=== PATIENT | male | born 1940 | race African-American/Black ===

== ENCOUNTER 2016-12-06 12:41 | Inpatient (IN) ==
[2016-12-06] MEDS ORDERED: MORPHINE 2 MG/1 ML SYRINGE IV PRN (12:45)
[2016-12-06] MEDS ORDERED: ONDANSETRON 4 MG/2 ML VIAL IV PRN (12:45)
[2016-12-06] MEDS ORDERED: NALOXONE 0.4 MG/ML VIAL IV PRN (12:45)
[2016-12-06] MEDS ORDERED: NITROGLYCERIN SL 0.4 MG TABLET SL PRN (12:49)
--- NOTE | 2016-12-06 12:57 | Family Practice History&Phys ---
Assessment and Plan (1) Atypical chest pain Status: Acute Assessment and plan: 12/06/2016: Cardiac isoenzyme series has been ordered. Will ask cardiology to see him as well. (2) Left maxillary sinusitis Status: Acute Assessment and plan: 12/06/2016: We will asked Dr. Alvaro Cherry to see him, IV Zosyn has been ordered. (3) Acute bronchitis Status: Acute Assessment and plan: 12/06/2016: We will begin bronchodilator therapy, IV antibiotics and repeat chest x-ray today. History of Present Illness Chief complaint: Chest pain History of present illness: Mr. Helton is a 76 year old male Patient is 76-year-old black male presented office on day of admission with persisting left-sided chest pain. Patient has had a productive cough for the last week or so. He is not having any fever or chills. He states the pain is intermittent and sharp in character and not associated with nausea, vomiting, diaphoresis or shortness of breath. Patient denies any radiation of this discomfort in the office was noted to have some chest wall tenderness. He was also having some URI symptoms and x-rays of the sinuses revealed him to have almost total opacification of his left maxillary sinus. Patient was being treated with outpatient antibiotics and handheld nebulizer but his symptoms persisted. It was felt best to admit him, check isoenzymes, ask ENT and cardiology to see him as well. A CT of his chest will also be ordered. Home Medications Medication Instructions Recorded Confirmed Type Aspirin [Ecotrin] 81 mg PO QAM 09/30/14 09/09/16 History Nitroglycerin [Nitroglycerin 0.4 1 patch TRANSDERM PRN PRN 09/30/14 09/09/16 History mg/Hr Patch] Amoxicillin/Clav Tab [Augmentin 500 mg PO TID #30 tablet 09/09/16 Rx Tab] Carvedilol 3.125 mg PO BID 09/09/16 09/09/16 History Cyanocobalamin (Vitamin B-12) 1,000 mcg PO QAM 09/09/16 09/09/16 History [Vitamin B-12] Dorzolamide/Timolol Oph Soln 1 drop BOTH EYES BID 09/09/16 09/09/16 History [Cosopt] Levothyroxine Tab [Synthroid Tab] 88 mcg PO DAILY@0700 09/09/16 09/09/16 History Meclizine [Antivert] 12.5 mg PO QID #40 tablet 09/09/16 Rx Vit C/Vit E AC/Lut/Copper/Zinc 1 each PO QAM 09/09/16 09/09/16 History [Preservision Lutein Softgel] predniSONE TAB [PredniSONE] 20 mg PO DAILY #15 tablet 09/09/16 Rx prednisoLONE acetate [PrednisoLONE 1 drop BOTH EYES TID 09/09/16 09/09/16 History Acetate 1% Oph Susp] Allergies Allergy/AdvReac Type Severity Reaction Status Date / Time No Known Allergies Allergy Unverified 09/30/14 07:33 - Constitutional Constitutional: Present: fatigue, weakness. Absent: chills, fever(s) - EENT Eyes: Absent: blurry vision, loss of vision Ears: Absent: decreased hearing, ear pain Nose, mouth and throat: Present: nasal congestion, sinus pressure, sore throat. Absent: hoarseness - Cardiovascular Cardiovascular: Present: chest pain at rest, dyspnea on exertion, palpitations. Absent: claudication, diaphoresis, dyspnea, orthopnea, PND - Respiratory Respiratory: Present: cough, dyspnea, dyspnea on exertion, wheezing, pain on inspiration - Gastrointestinal Gastrointestinal: Absent: abdominal pain, diarrhea, dyspepsia, dysphagia, hematemesis, hematochezia, melena, nausea, vomiting - Genitourinary Genitourinary: Absent: dysuria, urinary frequency - Musculoskeletal Musculoskeletal: Absent: arthralgias, back pain, joint swelling - Neurological Neurological: Absent: confusion, focal weakness, numbness, paresthesias - Psychiatric Psychiatric: Absent: anxiety, confusion, depression - Endocrine Endocrine: Present: fatigue. Absent: polydipsia, polyphagia - Hematologic/Lymphatic Hematologic/Lymphatic: Absent: easy bleeding, easy bruising Medical,Surgical,& Family Hx - Medical History Cardio: History of: Hypertension HEENT: History of: Glaucoma Endocrine: History of: Thyroid Disorder Respiratory: History of: Bronchitis - Surgical History Surgical History: noncontributory - Family History Family History: Reports;: Family Diabetes, Family Heart Disease, Family Hypertension - Social History Smoking Status: Never smoker Exam - Constitutional Exam: General: Objective patient is a well-developed black male in no acute distress. Patient is able give a good history. He is obviously a bit anxious about his present predicament. HEENT: Pupils equal and reactive to light. Patent nares and airway Neck: No meningismus, adenopathy, thyromegaly. There are no auscultated carotid bruits. Cardiovascular: Regular rhythm. No murmurs or gallops Chest: Clear to auscultation without rales rhonchi wheezes. Patient started to have some left anterior chest wall tenderness Abdomen: Soft nontender to palpation No masses, rebound, guarding or tenderness. Neuro: Cranial nerves intact and DTRs and strength symmetric in all extremities. Dermatologic: No evidence of abnormal lesions or masses. Musculoskeletal: There is no joint swelling or tenderness or deformity. Extremities: There is no calf swelling or tenderness. Results - Diagnostic Findings Procedure: X-ray: report reviewed by me (Sinus x-rays in office revealed almost complete opacification of left maxillary sinus.)
[2016-12-06] MEDS ORDERED: SODIUM CHLORIDE 0.45% 1,000 ML IV SCH (13:00)
[2016-12-06] MEDS: ALBUTEROL 2.5 MG/3 ML NEB RESP TX SCH ×2 (15:53→19:20)
[2016-12-06 16:21] LABS: Basophils % 0.4 % (0.0-0.8); Eosinophils # 0.1 10*3/uL (0.0-0.87); Eosinophils % 1.3 % (0.00-10.9); Hemoglobin 15.1 GM/DL (14.0-18.0); Immature Granulocytes % 0.4 %; Immature Granulocytes Absolute 0.02 #; Lymphocytes # 1.7 10*3/uL (1.4-4.0); Lymphocytes % 30.5 % (21.2-54.2); Mean Corpuscular HGB Conc 33.6 GM/DL (32-36); Mean Corpuscular Hemoglobin 30 PG (27-34); Mean Corpuscular Volume 88.8 FL (87-102); Mean Platelet Volume 12.7 FL (9.6-12.0); Monocytes # 0.4 10*3/uL (0.11-0.8); Monocytes % 7.8 % (1.7-12.7); Neutrophils # 3.3 10*3/uL (1.4-7.4); Neutrophils % 59.6 % (38.7-73.9); Platelet Count 141 T/CUMM (130-400); Red Blood Count 5.07 MC/CUMM (3.8-5.5); Red Cell Distribution Width 14.4 % (9.3-17.3); White Blood Count 5.5 T/CUMM (4-12)
[2016-12-06] MEDS: PIPERACILLIN/TAZOBACTAM 3,375 MG in SODIUM CHLORIDE 0.9% 100 ML IV SCH (16:41)
[2016-12-06 16:47] LABS: Bilirubin,Total 0.6 MG/DL (0.2-1.0); Calcium 9.1 MG/DL (8.5-10.1); Magnesium 2.3 MG/DL (1.8-2.4); Osmolality,Calculated 281.3 MOS/KG (273-304); Potassium 3.5 MMOL/L (3.5-5.1); Total Protein 7.6 G/DL (6.4-8.3)
--- NOTE | 2016-12-06 16:56 | Cardiology Consult Note ---
Assessment and Plan - Time spent with patient Time spent with patient: Greater than 30 minutes (chart review, exam and documentation.) (1) Aortic valve sclerosis Status: Chronic Current Visit: Yes (2) Aortic insufficiency Status: Chronic Current Visit: Yes Qualifiers: Cardiac valve disease etiology: nonrheumatic Qualified Code(s): I35.1 - Nonrheumatic aortic (valve) insufficiency (3) Hypertension Status: Chronic Current Visit: Yes (4) Atypical chest pain Status: Chronic Assessment and plan: Weight serial biomarkers and ECGs. The patient had a low risk stress test approximately 1 year ago. He may need further evaluation. His symptoms do not have appeared to change since that time. This is been a chronic problem. Current Visit: Yes History of Present Illness - Data of Consult Patient: known to practice within the last 3 years Consult date: 12/06/16 Requesting Physician: Leo Cuellar Primary care physician: Leo Cuellar ([facility]) - Consult Narrative Reason for consult: Atypical chest pain History of present illness: Mr. Helton is a 76 year old male with a strong family history of coronary artery disease who was evaluated in the in November 2015 began walking nuclear stress test and transthoracic echo. He had a low risk stress test at that time his echo showed ejection fraction of 60% with mildly dilated left atrium mild aortic sclerosis and trivial aortic insufficiency with grade 1 diastolic dysfunction right ventricular systolic pressure at that time was estimated to be 40 mmHg plus right atrial pressure. He states he has chest pain all the time now he presents to Dr. Cuellar for evaluation when headache is his primary complaint but also a secondary complaint of chest pain. It comes and goes without provocation reason and leaves just as mysteriously as it came on. It is not related to exertion and is not related to eating is not related to position. He is admitted to the hospital and I saw on 2 E. for evaluation has been initiated. His CBC is back EKG is pending as are his other labs. He is not having pain at this time. He is accompanied by his brother Ismael. The patient lives alone. This pain has been a chronic discomfort. He describes a sharp waxing and waning. CC: Leo Cuellar MD - Home Medications and Allergies Home Medications: Home Medications Medication Instructions Recorded Confirmed Type Aspirin [Ecotrin] 81 mg PO QAM 09/30/14 12/06/16 History Cyanocobalamin (Vitamin B-12) 1,000 mcg PO QAM 09/09/16 12/06/16 History [Vitamin B-12] Levothyroxine Tab [Synthroid Tab] 88 mcg PO DAILY@0700 09/09/16 12/06/16 History prednisoLONE acetate [PrednisoLONE 1 drop BOTH EYES TID 09/09/16 12/06/16 History Acetate 1% Oph Susp] Albuterol Sulfate [Proair HFA] 2 puff INH Q4H PRN 12/06/16 12/06/16 History Amoxicillin Cap/Tab 875 mg PO Q12HR 12/06/16 12/06/16 History Dorzolamide HCl/Timolol Maleat 1 drop RIGHT EYE BID 12/06/16 12/06/16 History [Dorzolamide/Timolol Oph Soln] Lutein 20 mg PO DAILY 12/06/16 12/06/16 History Triamterene/Hydrochlorothiazid 1 each PO DAILY 12/06/16 12/06/16 History [Triamterene-Hctz 37.5-25 mg Tb] Vit C/Vit E AC/Lut/Copper/Zinc 1 each PO DAILY 12/06/16 12/06/16 History [Preservision Lutein Softgel] Allergies/Adverse Reactions: Allergies Allergy/AdvReac Type Severity Reaction Status Date / Time No Known Allergies Allergy Unverified 09/30/14 07:33 - Constitutional Constitutional: Absent: anorexia, chills, fever(s), frequent falls, weight loss - EENT Eyes: Absent: blurry vision, diplopia Ears: Absent: decreased hearing, ear discharge Nose, mouth and throat: Present: dysphagia, nasal congestion, sinus pressure - Cardiovascular Cardiovascular: Present: chest pain at rest. Absent: chest pain with activity, dyspnea, dyspnea on exertion, edema, lightheadedness, orthopnea, palpitations - Respiratory Respiratory: Absent: dyspnea, dyspnea on exertion - Gastrointestinal Gastrointestinal: Absent: abdominal pain, constipation, cramping, dyspepsia, heartburn - Genitourinary Genitourinary: Absent: difficulty urinating, hematuria - Musculoskeletal Musculoskeletal: Present: arthralgias. Absent: joint swelling, muscle cramps - Neurological Neurological: Absent: abnormal gait, disequilibrium - Psychiatric Psychiatric: Absent: anxiety, depression - Endocrine Endocrine: Absent: cold intolerance, heat intolerance - Hematologic/Lymphatic Hematologic/Lymphatic: Absent: easy bleeding, easy bruising Medical,Surgical,& Family Hx - Medical History Cardio: History of: Hypertension, Valvular Heart Disease (Trivial AI and aortic sclerosis by last TTE. RVSP estimated at 40 mmHg.) HEENT: History of: Glaucoma Endocrine: History of: Thyroid Disorder Respiratory: History of: Bronchitis - Surgical History Abdominal Surgeries: Surgical HX of: Appendectomy (1962) - Family History Family History: Reports;: Family Diabetes, Family Heart Disease, Family Hypertension - Social History Smoking Status: Never smoker Frequency of Alcohol Use: None Type of Drug Use: None Marital Status: Single Lives With:: Alone Functional capacity: independent ambulation Physical Examination Vital Signs Temp Pulse Resp BP Pulse Ox 97.7 F 71 20 147/71 94 L 12/06/16 15:35 12/06/16 15:35 12/06/16 15:35 12/06/16 15:35 12/06/16 15:35 General: Present: Appears Well Neck: Present: Supple Neck, Midline Trachea Cardiac: Present: Reg Rate and Rhythm, S1/S2, S4, Systolic Murmur (2/6 murmur of aortic sclerosis) Lungs: Present: Normal Exam Neuro: Present: Cranial Nerve 2-12 Intact Abdomen: Present: Soft, Active Bowel Sounds Skin: Present: Clear, Rash Gait: Present: Normal Gait Extremities: Present: Normal Gait, No Clubbing. Absent: Edema Result/EKG - Labs CBC & BMP: 12/06/16 16:16 12/06/16 16:16 Labs: Laboratory Results - last 24 hr 12/06/16 12/06/16 12/06/16 16:16 16:16 16:16 WBC 5.5 RBC 5.07 Hgb 15.1 Hct 45.0 MCV 88.8 MCH 30 MCHC 33.6 RDW 14.4 Plt Count 141 MPV 12.7 H Neut % (Auto) 59.6 Lymph % (Auto) 30.5 [place] % (Auto) 7.8 Eos % (Auto) 1.3 Baso % (Auto) 0.4 Neut # (Auto) 3.3 Lymph # (Auto) 1.7 [place] # (Auto) 0.4 Eos # (Auto) 0.1 Baso # (Auto) 0.0 Immature Gran % 0.4 Nucleated RBC % 0.0 Immature Gran # 0.02 Nucleated RBCs # 0.00 Immature Plt Fraction 0.0 Sodium 141 Potassium 3.5 Chloride 107 Carbon Dioxide 30 Anion Gap 7.5 BUN 13 Creatinine 1.10 GFR Calculation 100 BUN/Creatinine Ratio 11.00 Glucose 108 H Calculated Osmolality 281.3 Calcium 9.1 Magnesium 2.3 Total Bilirubin 0.60 AST 13 ALT 22 Alkaline Phosphatase 71 C-Reactive Protein B-Natriuretic Peptide 12 Total Protein 7.6 Albumin 4.0 Globulin 3.6 H Albumin/Globulin Ratio 1.1 12/06/16 16:16 WBC RBC Hgb Hct MCV MCH MCHC RDW Plt Count MPV Neut % (Auto) Lymph % (Auto) [place] % (Auto) Eos % (Auto) Baso % (Auto) Neut # (Auto) Lymph # (Auto) [place] # (Auto) Eos # (Auto) Baso # (Auto) Immature Gran % Nucleated RBC % Immature Gran # Nucleated RBCs # Immature Plt Fraction Sodium Potassium Chloride Carbon Dioxide Anion Gap BUN Creatinine GFR Calculation BUN/Creatinine Ratio Glucose Calculated Osmolality Calcium Magnesium Total Bilirubin AST ALT Alkaline Phosphatase C-Reactive Protein < 0.29 B-Natriuretic Peptide Total Protein Albumin Globulin Albumin/Globulin Ratio
[2016-12-06 16:59] LABS: Troponin I Only < 0.015 NG/ML (0.00-0.045)
[2016-12-06 17:07] LABS: Apearance,Urine CLEAR (Clear); Bilirubin,Urine Negative (Negative); Blood, Urine Negative (Negative); Glucose,Urine (UA) Negative (Negative); Ketones,Urine Negative (Negative); Mucus,Urine Occasional /LPF (Occasional); Nitrite,Urine Negative (Negative); Protein,Urine Negative; RBC,Urine 1 /HPF (0-4); Squamous Epithelial Cell,Urine Occasional /HPF (0-10); Urine Color Yellow (Yellow); Urine Specific Gravity 1.026 (1.001-1.035); WBC,Urine 2 /HPF (0-6)
--- NOTE | 2016-12-06 17:21 | XRay Report ---
2 view chest. Indication: Shortness of breath. Comparison: September 09, 2016. The heart is enlarged. There is uncoiling of the thoracic aorta which often indicates chronic hypertension. There is a calcified lymph node in the right hilum. No consolidation, pneumothorax, or pleural effusion. Osseous structures are unremarkable. Impression: No acute abnormality. PROCEDURE INTERPRETED AT [facility] DEPARTMENT OF RADIOLOGY Final Report Signed by: Dr. Janet Vincent
--- NOTE | 2016-12-06 17:43 | CT Report ---
CT of the chest with intravenous contrast, PE protocol. Indication: Chest pain and shortness of breath. 80 cc Omni 350. Axial images were obtained with sagittal and coronal 2-D reconstructions and 3-D reconstructions. The thyroid gland is normal in size. There is no supraclavicular or axillary lymphadenopathy. The heart is normal in size. The thoracic aorta is of normal caliber. There is no evidence of pulmonary thromboembolism. There is no pleural or pericardial effusion. The lung campos demonstrate minimal centrilobular emphysematous change and bronchial wall thickening. Osseous structures are unremarkable. Impression: Chronic lung changes. No evidence of pulmonary thromboembolism. The CT exam was performed using one or more of the following dose reduction techniques: Automated exposure control, adjustment of the mA and/or kV according to patient size, or use of iterative reconstruction technique. PROCEDURE INTERPRETED AT [facility] DEPARTMENT OF RADIOLOGY Final Report Signed by: Dr. Janet Vincent
[2016-12-06] MEDS: ENOXAPARIN 40 MG/0.4 ML SYRINGE SUBCUT SCH (18:10)
[2016-12-06 20:23] LABS: Troponin I Only < 0.015 NG/ML (0.00-0.045)
[2016-12-06] MEDS ORDERED: NITROGLYCERIN 2% OINT 1 INCH/GM PACK TOP SCH (21:00)
[2016-12-06] MEDS: DOCUSATE SODIUM 100 MG CAPSULE PO SCH (21:21)
[2016-12-06] MEDS: DORZOLAMIDE/TIMOLOL OPH SOLN 10 ML BOTTLE BOTH EYES SCH (21:21)
[2016-12-06 22:57] LABS: Troponin I Only < 0.015 NG/ML (0.00-0.045)
[2016-12-07] MEDS: ALBUTEROL 2.5 MG/3 ML NEB RESP TX SCH ×4 (00:11→19:55)
[2016-12-07] MEDS: PIPERACILLIN/TAZOBACTAM 3,375 MG in SODIUM CHLORIDE 0.9% 100 ML IV SCH ×3 (01:21→16:40)
[2016-12-07] MEDS: ACETAMINOPHEN 325 MG TABLET PO PRN ×2 (01:52→18:09)
[2016-12-07 06:10] LABS: Risk Ratio 3.69; VLDL CHOLESTEROL 14.6 MG/DL
[2016-12-07] MEDS: LEVOTHYROXINE 88 MCG TABLET PO SCH (06:12)
--- NOTE | 2016-12-07 07:18 | Family Practice Progress Note ---
Family Practice - PN: Subj Interval history: Patient states that he had a good night but still feels terrible. His workup thus far only reveals left maxillary sinusitis. Told patient had normal CBC and a normal CRP. A CT of the chest reveal no evidence of pulmonary embolus or infiltrates. His laboratory studies basically unremarkable. I have asked ENT to see him today and will continue his present antibiotics. I am going ask physical therapy to come and ambulate him today. Exam (Progress Note) - Constitutional Vitals: Period Temp Pulse Resp BP Sys/Guajardo Pulse Ox Last 24 Hr 97.2 F-98.2 F 59-71 18-20 129-147/71-78 94-98 Exam: Objective well-developed gentleman in no acute distress. He is able to give good history. He has no confusion or disorientation. Cardiovascular: The heart rate is regular without murmurs or gallops. Respiratory: Lungs clear to auscultation bilaterally. He was noted to have left anterior chest wall tenderness. Abdomen: Abdomen soft and nontender to palpation. Extremities: There is no calf swelling or tenderness. Results - Labs CBC & BMP: 12/06/16 16:16 12/06/16 16:16 Lab Results: I have reviewed the past 24 hour labs - Diagnostic Findings Procedure: Chest x-ray: report reviewed by me (No acute abnormality seen.), CT - chest: report reviewed by me (No evidence of pulmonary emboli or infiltrates.) Assessment and Plan (1) Atypical chest pain Status: Chronic Assessment and plan: 12/06/2016: Cardiac isoenzyme series has been ordered. Will ask cardiology to see him as well. 12/07/2016: Patient's cardiac isoenzymes are all negative. I reassured him he certainly did not have any evidence of heart attack. Current Visit: Yes (2) Left maxillary sinusitis Status: Acute Assessment and plan: 12/06/2016: We will asked Dr. Alvaro Cherry to see him, IV Zosyn has been ordered. 12/07/2016: Patient will be seen by ENT. Continue present IV antibiotics. Current Visit: Yes (3) Acute bronchitis Status: Acute Assessment and plan: 12/06/2016: We will begin bronchodilator therapy, IV antibiotics and repeat chest x-ray today. 12/07/2016: Patient states his cough has improved somewhat. Current Visit: Yes
--- NOTE | 2016-12-07 08:14 | EKG Report ---
Stationary ECG Study [facility] Test Date: 12/06/2016 6:19:47 PM Pat Name: JUAN HICKS Department: Room: 245 Gender: M Athletics Director: DOUGIE : 1940 Requested by: Christiana Valdovinos Order Number: [id number] Reading MD: CHRISTIANA VALDOVINOS Intervals [place] Rate: 68 P: 51 OR: 194 QRS: -3 QRSD: 104 T: 36 QT: 397 QTc: 414 Interpretive Statements SINUS RHYTHM Electronically Signed On 12-09-16 18:33:35 CDT by CHRISTIANA VALDOVINOS [email or web address]
--- NOTE | 2016-12-07 08:15 | EKG Report ---
Stationary ECG Study [facility] Test Date: 12/07/2016 7:19:36 AM Pat Name: JUAN HICKS Department: Room: 245 Gender: M Certified Medication Aide: SHELDON : 1940 Requested by: Zachary Martin Order Number: [id number] Reading MD: ESSENCE GIBSON Intervals [place] Rate: 60 P: 46 MT: 166 QRS: 1 QRSD: 107 T: -17 QT: 411 QTc: 411 Interpretive Statements SINUS RHYTHM at 60 bpm POSSIBLE RIGHT VENTRICULAR CONDUCTION DELAY VOLTAGE CRITERIA FOR [facility] MT WP SUGGESTS INFERIOR MYOCARDIAL INFARCTION, OF INDETERMINATE AGE WITH POSTERIOR EXTENSION Electronically Signed On 12-10-16 17:22:57 CDT by ESSENCE GIBSON [email or web address]
[2016-12-07] MEDS: CYANOCOBALAMIN 500 MCG TABLET PO SCH (08:55)
[2016-12-07] MEDS: ASPIRIN EC 81 MG TABLET PO SCH (08:55)
[2016-12-07] MEDS: TRIAMTERENE/HCTZ 37.5-25 MG TABLET PO SCH (08:55)
[2016-12-07] MEDS: DOCUSATE SODIUM 100 MG CAPSULE PO SCH ×2 (08:55→21:23)
[2016-12-07] MEDS: PANTOPRAZOLE 40 MG TABLET PO SCH (08:55)
[2016-12-07] MEDS ORDERED: ASPIRIN EC 325 MG TABLET PO SCH (09:00)
[2016-12-07] MEDS: DORZOLAMIDE/TIMOLOL OPH SOLN 10 ML BOTTLE BOTH EYES SCH ×2 (10:28→21:22)
--- NOTE | 2016-12-07 11:02 | Consultation ---
<Fior Joy - Last Filed: 12/07/16 12:01> Assessment and Plan (1) Left maxillary sinusitis Status: Acute Assessment and plan: with chronic sinusitis. Patient in currently on antibiotic therapy. We will get a CT scan of the sinuses for further evaluation. After this is obtained, we will discuss outpatient management options. Thank you for your consultation. Current Visit: Yes (2) Frontal headache Status: Acute Assessment and plan: Patient had onset of frontal headache during his interview which is likely related to his chronic sinusitis. Trigger point pressure applied to supra occipital nerve with some relief of his frontal headache. Encouraged patient to perform this technique the onset of his frontal headaches. Current Visit: Yes (3) Trigeminal neuralgia Status: Acute Assessment and plan: See frontal headaches. Current Visit: Yes (4) Nasal polyps Status: Chronic Assessment and plan: same as left maxillary sinusitis and add Flonase. Current Visit: Yes History of Present Illness - Data of Consult Patient: new to practice Consult date: 12/07/16 - Consult Narrative Reason for consult: Left Maxillary Sinusitis History of present illness: Mr. Helton is a 76 year old male who is currently being treated for left maxillary sinusitis. Prior to admission, he was on outpatient antibiotics and was noted to have a left maxillary sinusitis on x-ray. He is currently on IV antibiotics and also has bronchitis. He complains of cough with sputum which is a chronic issue. He also has chronic frontal headaches with one occurring during his interview. CC: Leo Cuellar MD - Home Medications and Allergies Home Medications: Home Medications Medication Instructions Recorded Confirmed Type Aspirin [Ecotrin] 81 mg PO QAM 09/30/14 12/06/16 History Cyanocobalamin (Vitamin B-12) 1,000 mcg PO QAM 09/09/16 12/06/16 History [Vitamin B-12] Levothyroxine Tab [Synthroid Tab] 88 mcg PO DAILY@0700 09/09/16 12/06/16 History prednisoLONE acetate [PrednisoLONE 1 drop BOTH EYES TID 09/09/16 12/06/16 History Acetate 1% Oph Susp] Albuterol Sulfate [Proair HFA] 2 puff INH Q4H PRN 12/06/16 12/06/16 History Amoxicillin Cap/Tab 875 mg PO Q12HR 12/06/16 12/06/16 History Dorzolamide HCl/Timolol Maleat 1 drop RIGHT EYE BID 12/06/16 12/06/16 History [Dorzolamide/Timolol Oph Soln] Lutein 20 mg PO DAILY 12/06/16 12/06/16 History Triamterene/Hydrochlorothiazid 1 each PO DAILY 12/06/16 12/06/16 History [Triamterene-Hctz 37.5-25 mg Tb] Vit C/Vit E AC/Lut/Copper/Zinc 1 each PO DAILY 12/06/16 12/06/16 History [Preservision Lutein Softgel] Allergies/Adverse Reactions: Allergies Allergy/AdvReac Type Severity Reaction Status Date / Time No Known Allergies Allergy Unverified 09/30/14 07:33 12 point system: reviewed and no additional remarkable complaints except as stated - EENT Nose, mouth and throat: Present: as per HPI - Respiratory Respiratory: Present: as per HPI Medical,Surgical,& Family Hx - Medical History Cardio: History of: Hypertension, Valvular Heart Disease (Trivial AI and aortic sclerosis by last TTE. RVSP estimated at 40 mmHg.) HEENT: History of: Glaucoma Endocrine: History of: Thyroid Disorder Respiratory: History of: Bronchitis - Surgical History Abdominal Surgeries: Surgical HX of: Appendectomy (1962) - Family History Family History: Reports;: Family Diabetes, Family Heart Disease, Family Hypertension - Social History Smoking Status: Never smoker Frequency of Alcohol Use: None Type of Drug Use: None Exam - Constitutional Vitals: Period Temp Pulse Resp BP Sys/Guajardo Pulse Ox Last 24 Hr 97.2 F-98.2 F 59-71 18-20 129-147/71-78 94-99 General appearance: normal weight, no acute distress - Head Head exam: Present: normal inspection, normocephalic, other (Supraorbital nerve tenderness) - Eye Eye exam: Present: EOMI - ENT ENT exam: Present: normal external ear exam, other (Anterior rhinoscopy performed and noted left polypoid degeneration) - Expanded ENT Exam Teeth exam: Present: other (Poor dentition) Throat exam: Present: normal inspection - Neck Neck exam: Present: normal inspection - Respiratory Respiratory exam: Present: other (Normal effort and movement bilaterally) - Neurological Exam Neurological exam: Present: alert, oriented X3 - Psychiatric Psychiatric exam: Present: normal affect, normal mood - Skin Skin exam: Present: normal color, warm Results - Labs CBC & BMP: 12/06/16 16:16 12/06/16 16:16 <Alvaro Cherry - Last Filed: 12/07/16 12:34> Assessment and Plan - Time spent with patient Time spent with patient: Less than 30 minutes History of Present Illness - Consult Narrative History of present illness: Mr. Helton is a 76 year old male CC: Leo Cuellar MD Exam - Constitutional Vitals: Period Temp Pulse Resp BP Sys/Guajardo Pulse Ox Last 24 Hr 97.2 F-98.2 F 59-71 18-20 129-157/71-96 94-99 - Neurological Exam Neurological exam: Present: CN II-XII intact (Cranial nerve V branch 1 hyperesthesia bilateral treated with a direct inhibition technique tolerated well abated headache) Results - Labs CBC & BMP: 12/06/16 16:16 12/06/16 16:16 Lab Results: I have reviewed the past 24 hour labs
--- NOTE | 2016-12-07 12:20 | CT Report ---
CT sinus wo con Indication: Left maxillary sinusitis, chronic sinusitis Comparison: None Technique: Multiple axial tomographic images of the sinuses were obtained without the use of intravenous contrast. Coronal reformatted images provided. Findings: There is near complete opacification of the left maxillary sinus with changes of chronic osteitis. There is mild hyperdensity centrally which may reflect inspissated secretions or fungal infection. There is minimal mucosal thickening of the ethmoid air cells. Remaining paranasal sinuses and mastoid air cells are clear. Visualized osseous and surrounding soft tissue structures demonstrate no acute abnormality. IMPRESSION: There is near complete opacification of the left maxillary sinus with changes of chronic osteitis. There is mild hyperdensity centrally which may reflect inspissated secretions or fungal infection. There is minimal mucosal thickening of the ethmoid air cells. The CT exam was performed using one or more of the following dose reduction techniques: Automated exposure control, adjustment of the mA and/or kV according to patient size, or use of iterative reconstruction technique. PROCEDURE INTERPRETED AT [facility] [place] DEPARTMENT OF RADIOLOGY Final Report Signed by: Dr John Woodard
--- NOTE | 2016-12-07 13:44 | Cardiology Progress Note ---
Assessment and Plan (1) Aortic valve sclerosis Status: Chronic Current Visit: Yes (2) Aortic insufficiency Status: Chronic Current Visit: Yes Qualifiers: Cardiac valve disease etiology: nonrheumatic Qualified Code(s): I35.1 - Nonrheumatic aortic (valve) insufficiency (3) Hypertension Status: Chronic Current Visit: Yes (4) Atypical chest pain Status: Chronic Assessment and plan: Outpatient work up if persists. follow up with Dr. Augustin. Current Visit: Yes Cardiology - PN: Subj Interval history: Mr. Helton continues to have chest pain he says it starts out in his hand and goes to his chest. He had a low risk nuclear stress test and echo in November of last year. His cardiac biomarkers are negative his EKG is workable. 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 I do not feel that inpatient evaluation is warranted at this time. His CT scan of the sinuses was noted. I do not think any further cardiovascular workup needs to be performed at this time in the hospital. I have nothing further to add and will sign off please call if needed Exam (Progress Note) - Constitutional Vitals: Period Temp Pulse Resp BP Sys/Guajardo Pulse Ox Last 24 Hr 97.2 F-98.2 F 59-71 18-20 129-157/71-96 94-99 General appearance: normal weight - Eye Eye exam: Present: EOMI Pupils: Present: KARTHIK - Respiratory Respiratory exam: Present: clear to auscultation bilaterally - Cardiovascular Cardiovascular exam: Present: regular rate and rhythm - GI/Abdominal GI/Abdominal exam: Present: normal bowel sounds - Neurological Exam Neurological exam: Present: alert, oriented X3 - Psychiatric Psychiatric exam: Present: normal affect, anxious - Skin Skin exam: Present: normal color, warm, dry Result/EKG - Labs CBC & BMP: 12/06/16 16:16 12/06/16 16:16 Labs: Laboratory Results - last 24 hr 12/06/16 12/06/16 12/06/16 16:16 16:16 16:16 WBC 5.5 RBC 5.07 Hgb 15.1 Hct 45.0 MCV 88.8 MCH 30 MCHC 33.6 RDW 14.4 Plt Count 141 MPV 12.7 H Neut % (Auto) 59.6 Lymph % (Auto) 30.5 Pepin % (Auto) 7.8 Eos % (Auto) 1.3 Baso % (Auto) 0.4 Neut # (Auto) 3.3 Lymph # (Auto) 1.7 Pepin # (Auto) 0.4 Eos # (Auto) 0.1 Baso # (Auto) 0.0 Immature Gran % 0.4 Nucleated RBC % 0.0 Immature Gran # 0.02 Nucleated RBCs # 0.00 Immature Plt Fraction 0.0 ESR Westergren Sodium 141 Potassium 3.5 Chloride 107 Carbon Dioxide 30 Anion Gap 7.5 BUN 13 Creatinine 1.10 GFR Calculation 100 BUN/Creatinine Ratio 11.00 Glucose 108 H POC Glucose Calculated Osmolality 281.3 Calcium 9.1 Magnesium 2.3 Total Bilirubin 0.60 AST 13 ALT 22 Alkaline Phosphatase 71 Total Creatine Kinase CK-MB (CK-2) Troponin I C-Reactive Protein B-Natriuretic Peptide 12 Total Protein 7.6 Albumin 4.0 Globulin 3.6 H Albumin/Globulin Ratio 1.1 Triglycerides Cholesterol LDL Cholesterol VLDL Cholesterol HDL Cholesterol Heart Disease Risk Ratio Urine Color Urine Appearance Urine pH Ur Specific Acworth Urine Protein Urine Glucose (UA) Urine Ketones Urine Blood Urine Nitrate Urine Bilirubin Urine Urobilinogen Urine Leukocytes Urine RBC Urine WBC Ur Squamous Epith Cells Urine Mucus Ur Culture Indicated? 12/06/16 12/06/16 12/06/16 16:16 16:16 16:16 WBC RBC Hgb Hct MCV MCH MCHC RDW Plt Count MPV Neut % (Auto) Lymph % (Auto) Pepin % (Auto) Eos % (Auto) Baso % (Auto) Neut # (Auto) Lymph # (Auto) Pepin # (Auto) Eos # (Auto) Baso # (Auto) Immature Gran % Nucleated RBC % Immature Gran # Nucleated RBCs # Immature Plt Fraction ESR Westergren 21 H Sodium Potassium Chloride Carbon Dioxide Anion Gap BUN Creatinine GFR Calculation BUN/Creatinine Ratio Glucose POC Glucose Calculated Osmolality Calcium Magnesium Total Bilirubin AST ALT Alkaline Phosphatase Total Creatine Kinase 94 CK-MB (CK-2) < 1.0 Troponin I < 0.015 C-Reactive Protein < 0.29 B-Natriuretic Peptide Total Protein Albumin Globulin Albumin/Globulin Ratio Triglycerides Cholesterol LDL Cholesterol VLDL Cholesterol HDL Cholesterol Heart Disease Risk Ratio Urine Color Urine Appearance Urine pH Ur Specific Acworth Urine Protein Urine Glucose (UA) Urine Ketones Urine Blood Urine Nitrate Urine Bilirubin Urine Urobilinogen Urine Leukocytes Urine RBC Urine WBC Ur Squamous Epith Cells Urine Mucus Ur Culture Indicated? 12/06/16 12/06/16 12/06/16 16:38 19:50 21:39 WBC RBC Hgb Hct MCV MCH MCHC RDW Plt Count MPV Neut % (Auto) Lymph % (Auto) Pepin % (Auto) Eos % (Auto) Baso % (Auto) Neut # (Auto) Lymph # (Auto) Pepin # (Auto) Eos # (Auto) Baso # (Auto) Immature Gran % Nucleated RBC % Immature Gran # Nucleated RBCs # Immature Plt Fraction ESR Westergren Sodium Potassium Chloride Carbon Dioxide Anion Gap BUN Creatinine GFR Calculation BUN/Creatinine Ratio Glucose POC Glucose Calculated Osmolality Calcium Magnesium Total Bilirubin AST ALT Alkaline Phosphatase Total Creatine Kinase 85 88 CK-MB (CK-2) 1.0 < 1.0 Troponin I < 0.015 < 0.015 C-Reactive Protein B-Natriuretic Peptide Total Protein Albumin Globulin Albumin/Globulin Ratio Triglycerides Cholesterol LDL Cholesterol VLDL Cholesterol HDL Cholesterol Heart Disease Risk Ratio Urine Color Yellow Urine Appearance Clear Urine pH 5.0 Ur Specific Acworth 1.026 Urine Protein Negative Urine Glucose (UA) Negative Urine Ketones Negative Urine Blood Negative Urine Nitrate Negative Urine Bilirubin Negative Urine Urobilinogen 4.0 H Urine Leukocytes Negative Urine RBC 1 Urine WBC 2 Ur Squamous Epith Cells Occasional Urine Mucus Occasional Ur Culture Indicated? Not indicated 12/07/16 12/07/16 04:20 11:32 WBC RBC Hgb Hct MCV MCH MCHC RDW Plt Count MPV Neut % (Auto) Lymph % (Auto) Pepin % (Auto) Eos % (Auto) Baso % (Auto) Neut # (Auto) Lymph # (Auto) Pepin # (Auto) Eos # (Auto) Baso # (Auto) Immature Gran % Nucleated RBC % Immature Gran # Nucleated RBCs # Immature Plt Fraction ESR Westergren Sodium Potassium Chloride Carbon Dioxide Anion Gap BUN Creatinine GFR Calculation BUN/Creatinine Ratio Glucose POC Glucose 91 Calculated Osmolality Calcium Magnesium Total Bilirubin AST ALT Alkaline Phosphatase Total Creatine Kinase CK-MB (CK-2) Troponin I C-Reactive Protein B-Natriuretic Peptide Total Protein Albumin Globulin Albumin/Globulin Ratio Triglycerides 73 Cholesterol 166 LDL Cholesterol 108.0 VLDL Cholesterol 14.6 HDL Cholesterol 45 Heart Disease Risk Ratio 3.69 Urine Color Urine Appearance Urine pH Ur Specific Acworth Urine Protein Urine Glucose (UA) Urine Ketones Urine Blood Urine Nitrate Urine Bilirubin Urine Urobilinogen Urine Leukocytes Urine RBC Urine WBC Ur Squamous Epith Cells Urine Mucus Ur Culture Indicated? - EKG EKG results: interpreted by me (NSR with incomplete RBBB and inferior q waves non specific st-t changes.) Specialty Discharge - Follow Up or Referrals Follow up with: Ar Augustin MD [Physician] - 2 Weeks (ECG)
--- NOTE | 2016-12-07 14:46 | ECHO Report ---
Will Helton Exam Date: 12/07/2016 11:26 Referring Physician: Technologist: Samira Arita LRFARRUKH Age: 76 Ht (in): 72 Wt (lb): 231 Gender: M Exam Location: [facility] Echo Indications: chest pain, HTN BP: 157 / 96 HR: 65 Rhythm: Sinus Technical Quality: average IMPRESSIONS Left ventricular ejection fraction is estimated at 60 %. There is no regional wall motion abnormality. Mild concentric left ventricular hypertrophy with grade I diastolic dysfunction. Tricuspid regurgitation velocities suggest a RVSP of 12 mmHg + RAP. MEASUREMENTS (Male / Female) Normal Values 2D ECHO LV Diastolic Diameter PLAX 4.2 cm 4.2 - 5.9 / 3.9 - 5.3 cm LV Systolic Diameter PLAX 2.6 cm LV Fractional Shortening PLAX 39.3 % IVS Diastolic Thickness 1.3 cm 0.6 - 1.0 / 0.6 - 0.9 cm LVPW Diastolic Thickness 1.2 cm 0.6 - 1.0 / 0.6 - 0.9 cm Aortic Root Diameter 3.3 cm LA Systolic Diameter LX 3.4 cm 3.0 - 4.0 / 2.7 - 3.8 cm DOPPLER TR Peak Velocity 170.0 cm/s TR Peak Gradient 11.6 mmHg FINDINGS Left Ventricle Normal left ventricular cavity size. Mild concentric left ventricular hypertrophy with grade I diastolic dysfunction. Left ventricular ejection fraction is estimated at 60 %. There is no regional wall motion abnormality Right Ventricle Normal right ventricular size. Right Atrium Normal right atrial size. Left Atrium Normal left atrial size. Mitral Valve Mildly thickened mitral valve with trace mitral regurgitation. Aortic Valve The aortic valve is trileaflet and has normal motion. Tricuspid Valve Morphologically normal tricuspid valve. Trace tricuspid valve regurgitation. Tricuspid regurgitation velocities suggest a RVSP of 12 mmHg + RAP. Pulmonic Valve Morphologically normal pulmonic valve. Pericardium No pericardial effusion. Aorta Normal size aortic root and proximal ascending aorta. Veronica Conde (Electronically Signed) Final Date: 07 December 2016 14:45
[2016-12-07] MEDS: ENOXAPARIN 40 MG/0.4 ML SYRINGE SUBCUT SCH (21:23)
[2016-12-08] MEDS: PIPERACILLIN/TAZOBACTAM 3,375 MG in SODIUM CHLORIDE 0.9% 100 ML IV SCH ×2 (00:59→09:26)
[2016-12-08] MEDS: LEVOTHYROXINE 88 MCG TABLET PO SCH (06:03)
[2016-12-08] MEDS: ACETAMINOPHEN 325 MG TABLET PO PRN (06:03)
--- NOTE | 2016-12-08 07:14 | EKG Report ---
Stationary ECG Study [facility] Test Date: 12/08/2016 7:15:18 AM Pat Name: JUAN HICKS Department: Room: 245 Gender: M Patient Financial Representative: SHELDON : 1940 Requested by: Zachary Martin Order Number: [id number] Reading MD: ESSENCE GIBSON Intervals [place] Rate: 57 P: 57 ME: 184 QRS: 7 QRSD: 106 T: -1 QT: 419 QTc: 414 Interpretive Statements SINUS RHYTHM at 57 bpm VOLTAGE CRITERIA FOR LVH Electronically Signed On 12-11-16 12:09:37 CDT by ESSENCE GIBSON [email or web address]
[2016-12-08] MEDS: ALBUTEROL 2.5 MG/3 ML NEB RESP TX SCH ×2 (07:51)
--- NOTE | 2016-12-08 08:03 | Discharge Summary ---
Hospital Course - Hospital Course Hospital Course: Patient 76-year-old black gentleman who presented the office on day of admission with increased cough, left chest pain and subjective fever. Patient was found to have left maxillary opacification consistent with acute sinusitis. He was noted to have some chest wall tenderness as well and was seen by cardiology did not feel that he had cardiac chest pain. His cardiac isoenzymes and EKG were normal. CT of the chest was obtained and he had no evidence of pulmonary embolus or infiltrate. He was seen in consultation by Dr. Alvaro Ahuja who will follow him up in the office for resolution of his sinusitis. Patient be discharged home today on present meds Diagnosis - Discharge Diagnosis (1) Atypical chest pain Status: Chronic (2) Left maxillary sinusitis Status: Acute (3) Acute bronchitis Status: Acute Specialty Discharge - Follow Up or Referrals Follow up with: Ar Augustin MD [Physician] - 2 Weeks (ECG) Discharge Plan - Discharge Data Disposition: Disch To Home/Self Care Condition at Discharge: Stable Discharge Diet: advance to your usual diet Activity: resume usual activities as tolerated Hygiene: no restrictions Weight Bearing at Discharge: full weight bearing Contact your physician if you experience:: fever over 101 - Discharge Medications New Amoxicillin/Clav Tab [Augmentin Tab] 875 mg PO BID #30 tablet Dorzolamide/Timolol Oph Soln [Cosopt] 1 drop BOTH EYES BID bottle Nitroglycerin Sl Tab [Nitrostat] 0.4 mg SL Q5M PRN tablet PRN Reason: Chest Pain predniSONE TAB [PredniSONE] 20 mg PO DAILY #7 tablet Aspirin EC Tab 81 mg PO DAILY tablet Continue Aspirin [Ecotrin] 81 mg PO QAM Cyanocobalamin (Vitamin B-12) [Vitamin B-12] 1,000 mcg PO QAM Levothyroxine Tab [Synthroid Tab] 88 mcg PO DAILY@0700 Albuterol Sulfate [Proair HFA] 2 puff INH Q4H PRN PRN Reason: Shortness Of Breath/Wheezing Vit C/Vit E AC/Lut/Copper/Zinc [Preservision Lutein Softgel] 1 each PO DAILY Lutein 20 mg PO DAILY prednisoLONE acetate [PrednisoLONE Acetate 1% Oph Susp] 1 drop BOTH EYES TID Dorzolamide HCl/Timolol Maleat [Dorzolamide/Timolol Oph Soln] 1 drop RIGHT EYE BID Triamterene/Hydrochlorothiazid [Triamterene-Hctz 37.5-25 mg Tb] 1 each PO DAILY Discontinued Amoxicillin Cap/Tab 875 mg PO Q12HR - Follow Up or Referral Follow Up: Ar Augustin MD [Physician] - 2 Weeks (ECG) Alvaro Cherry DO [Physician] - 2 Weeks Leo Cuellar MD [Primary Care Provider] - 1 Month - Forms/Instructions Exam - Constitutional Vitals: Period Temp Pulse Resp BP Sys/Guajardo Pulse Ox Last 24 Hr 97.4 F-98.2 F 58-68 15-21 113-157/60-96 95-100 Exam: Objective well-developed gentleman in no acute distress. He is able to give good history. He has no confusion or disorientation. Cardiovascular: The heart rate is regular without murmurs or gallops. Respiratory: Lungs clear to auscultation bilaterally. He was noted to have left anterior chest wall tenderness which is unchanged from previous exam. Abdomen: Abdomen soft and nontender to palpation. Extremities: There is no calf swelling or tenderness. Discharge Results Procedures and tests throughout hospitalization: Pending Orders 12/06/16 16:16 Blood Culture Stat Labs on day of discharge: Labs from last 24 hours 12/07/16 11:32 POC Glucose 91 Preliminary micro results at discharge 12/06/16 16:16 Blood Culture - Preliminary Blood No growth at 1 day 12/06/16 16:16 Blood Culture - Preliminary Blood No growth at 1 day Blood cultures are negative DS: Provider Date of admission: 12/06/16 15:28 Primary care physician: Leo Cuellar MD Attending physician on admission: Leo Cuellar MD Consults: 12/06/16 12:45 Consult to Case Mgmt/Social Srvs [CONS] Routine Reason for Case Mgmt/Social Srvs: Discharge Planning 12/06/16 12:48 Consult to Physician [CONS] Routine Comment: Consulting Provider: Alvaro Cherry Person Notified: LESLEY Date Notified: 12/06/16 Time Notified: 15:31 12/06/16 12:51 Consult to Physician [CONS] Routine Comment: Consulting Provider: Cardiology - [facility] Person Notified: FEI Date Notified: 12/06/16 Time Notified: 15:32 Discharging clinician: Leo Cuellar MD Expected date of discharge: 12/08/16
[2016-12-08] MEDS: CYANOCOBALAMIN 500 MCG TABLET PO SCH (09:25)
[2016-12-08] MEDS: TRIAMTERENE/HCTZ 37.5-25 MG TABLET PO SCH (09:25)
[2016-12-08] MEDS: DOCUSATE SODIUM 100 MG CAPSULE PO SCH (09:25)
[2016-12-08] MEDS: PANTOPRAZOLE 40 MG TABLET PO SCH (09:25)
[2016-12-08] MEDS: ASPIRIN EC 81 MG TABLET PO SCH (09:25)
[2016-12-08] MEDS: DORZOLAMIDE/TIMOLOL OPH SOLN 10 ML BOTTLE BOTH EYES SCH (09:25)
[2016-12-08 12:23] VITALS: BP 163/102
== END 2016-12-08 12:56 | disposition home or self-care (01) | DRG 153 ==
LOC: N.2E 15:28
PROVIDERS: ADMIT Family Medicine; ATTEND Family Medicine

== ENCOUNTER 2017-07-13 09:20 | Inpatient (IN) ==
[2017-07-13] MEDS ORDERED: MORPHINE 4 MG/1 ML VIAL IV STA (11:08)
[2017-07-13 11:54] LABS: Basophils % 0.2 % (0.0-0.8); Eosinophils % 0.6 % (0.00-10.9); Hematocrit 39.3 VOL% (42.0-52.0); Hemoglobin 13.3 GM/DL (14.0-18.0); Immature Granulocytes % 0.3 %; Immature Granulocytes Absolute 0.02 #; Lymphocytes # 1.3 10*3/uL (1.4-4.0); Lymphocytes % 19.3 % (21.2-54.2); Mean Corpuscular HGB Conc 33.8 GM/DL (32-36); Mean Corpuscular Hemoglobin 30 PG (27-34); Mean Corpuscular Volume 88.7 FL (87-102); Mean Platelet Volume 12.8 FL (9.6-12.0); Monocytes # 0.6 10*3/uL (0.11-0.8); Monocytes % 8.8 % (1.7-12.7); Neutrophils # 4.7 10*3/uL (1.4-7.4); Neutrophils % 70.8 % (38.7-73.9); Platelet Count 113 T/CUMM (130-400); Red Blood Count 4.43 MC/CUMM (3.8-5.5); Red Cell Distribution Width 14.6 % (9.3-17.3); White Blood Count 6.6 T/CUMM (4-12)
[2017-07-13 12:03] LABS: Apearance,Urine CLOUDY (Clear); Bilirubin,Urine Negative (Negative); Blood, Urine Negative (Negative); Glucose,Urine (UA) Negative (Negative); Granular Casts,Urine 18 /LPF (0-1); Hyaline Casts,Urine 97 /LPF (0-3); Ketones,Urine Negative (Negative); Mucus,Urine Few /LPF (Occasional); Nitrite,Urine Negative (Negative); Protein,Urine 30 MG/DL; RBC,Urine 1 /HPF (0-4); Squamous Epithelial Cell,Urine Occasional /HPF (0-10); Urine Color Amber (Yellow); Urine Specific Gravity 1.018 (1.001-1.035); WBC,Urine 4 /HPF (0-6)
[2017-07-13 12:51] LABS: Alanine Aminotransferase 24 U/L (16-61); Albumin 3.4 G/DL (3.4-5.0); Alkaline Phosphatase 69 U/L (45-117); Aspartate Amino Transferase 14 U/L (0-37); Bilirubin,Total < 0.39 MG/DL (0.2-1.0); Blood Urea Nitrogen 13 MG/DL (7-18); Calcium 8.3 MG/DL (8.5-10.1); Glucose 108 MG/DL (74-106); Osmolality,Calculated 277.5 MOS/KG (273-304); Sodium 139 MMOL/L (136-145); Total Protein 6.4 G/DL (6.4-8.3); Troponin I Only < 0.015 NG/ML (0.00-0.045)
[2017-07-13] MEDS ORDERED: MORPHINE 4 MG/1 ML VIAL ONE (12:54)
[2017-07-13] MEDS ORDERED: ACETAMINOPHEN 325 MG TABLET PO PRN (15:29)
[2017-07-13] MEDS ORDERED: ONDANSETRON 4 MG/2 ML VIAL IV PRN ×2 (15:29→16:07)
[2017-07-13] MEDS ORDERED: NALOXONE 0.4 MG/ML VIAL IV PRN (16:07)
[2017-07-13] MEDS ORDERED: BISACODYL 10 MG SUPP RECTAL PRN (16:07)
[2017-07-13] MEDS ORDERED: KETOROLAC 30 MG/1 ML VIAL IV PRN (16:07)
[2017-07-13] MEDS ORDERED: BISACODYL 5 MG TABLET PO PRN (16:07)
[2017-07-13] MEDS ORDERED: IBUPROFEN 600 MG TABLET PO PRN (16:07)
[2017-07-13] MEDS ORDERED: NITROGLYCERIN SL 0.4 MG TABLET SL PRN (17:06)
[2017-07-13] MEDS ORDERED: MORPHINE 4 MG/1 ML VIAL IV PRN (17:11)
[2017-07-13 18:06] LABS: Apearance,Urine CLEAR (Clear); Bilirubin,Urine Negative (Negative); Blood, Urine Negative (Negative); Glucose,Urine (UA) Negative (Negative); Ketones,Urine Negative (Negative); Mucus,Urine Occasional /LPF (Occasional); Nitrite,Urine Negative (Negative); Protein,Urine Negative; RBC,Urine 1 /HPF (0-4); Squamous Epithelial Cell,Urine Occasional /HPF (0-10); Urine Color Yellow (Yellow); Urine Specific Gravity 1.051 (1.001-1.035); Urine Urobilinogen < 2.0 EU/DL (0.2-1.0); WBC,Urine 1 /HPF (0-6)
[2017-07-13 18:37] LABS: Troponin I Only < 0.015 NG/ML (0.00-0.045)
[2017-07-13] MEDS ORDERED: ALBUTEROL 2.5 MG/3 ML NEB RESP TX PRN (19:00)
[2017-07-13 20:34] LABS: Troponin I Only < 0.015 NG/ML (0.00-0.045)
[2017-07-13] MEDS ORDERED: DOCUSATE SODIUM 100 MG CAPSULE PO SCH (21:00)
[2017-07-13] MEDS: ENOXAPARIN 40 MG/0.4 ML SYRINGE SUBCUT SCH (21:01)
[2017-07-13] MEDS: TAMSULOSIN 0.4 MG CAPSULE PO SCH (21:01)
[2017-07-13] MEDS: DOCUSATE SODIUM 100 MG CAPSULE PO SCH (21:01)
[2017-07-13] MEDS: NEOMYCIN/POLYMYXIN/DEXAMETH OPH OINT 3.5 GM TUBE BOTH EYES SCH (21:02)
[2017-07-13] MEDS: LATANOPROST 0.005% OPH SOLN 2.5 ML BOTTLE BOTH EYES SCH (21:02)
[2017-07-13] MEDS: BRIMONIDINE 0.2% OPH SOLN 5 ML BOTTLE BOTH EYES SCH (21:02)
[2017-07-13 23:54] LABS: Troponin I Only < 0.015 NG/ML (0.00-0.045)
[2017-07-14 02:55] LABS: Troponin I Only < 0.015 NG/ML (0.00-0.045)
[2017-07-14] MEDS: LEVOTHYROXINE 88 MCG TABLET PO SCH (06:07)
[2017-07-14 06:35] LABS: Basophils % 0.5 % (0.0-0.8); Eosinophils # 0.1 10*3/uL (0.0-0.87); Eosinophils % 1.9 % (0.00-10.9); Hematocrit 39.9 VOL% (42.0-52.0); Hemoglobin 13.4 GM/DL (14.0-18.0); Immature Granulocytes % 0.5 %; Immature Granulocytes Absolute 0.02 #; Lymphocytes # 1.5 10*3/uL (1.4-4.0); Lymphocytes % 36.4 % (21.2-54.2); Mean Corpuscular HGB Conc 33.6 GM/DL (32-36); Mean Corpuscular Hemoglobin 30 PG (27-34); Mean Corpuscular Volume 88.9 FL (87-102); Mean Platelet Volume 13.8 FL (9.6-12.0); Monocytes # 0.5 10*3/uL (0.11-0.8); Monocytes % 10.8 % (1.7-12.7); Neutrophils # 2.1 10*3/uL (1.4-7.4); Neutrophils % 49.9 % (38.7-73.9); Platelet Count 84 T/CUMM (130-400); Red Blood Count 4.49 MC/CUMM (3.8-5.5); Red Cell Distribution Width 14.5 % (9.3-17.3); White Blood Count 4.2 T/CUMM (4-12)
[2017-07-14 07:04] LABS: Albumin 3.3 G/DL (3.4-5.0); Bilirubin,Total 1.3 MG/DL (0.2-1.0); Calcium 8.8 MG/DL (8.5-10.1); Osmolality,Calculated 279.4 MOS/KG (273-304); Potassium 4.8 MMOL/L (3.5-5.1); Total Protein 6.4 G/DL (6.4-8.3)
[2017-07-14] MEDS: DOCUSATE SODIUM 100 MG CAPSULE PO SCH ×2 (08:26→21:16)
[2017-07-14] MEDS: PANTOPRAZOLE 40 MG TABLET PO SCH (08:26)
[2017-07-14] MEDS: CYANOCOBALAMIN 500 MCG TABLET PO SCH (08:26)
[2017-07-14] MEDS: MULTIVITAMIN (OCUVITE) TABLET PO SCH (08:26)
[2017-07-14] MEDS: ASPIRIN 325 MG TABLET PO SCH (08:26)
[2017-07-14] MEDS: TAMSULOSIN 0.4 MG CAPSULE PO SCH ×2 (08:26→21:16)
[2017-07-14] MEDS: BRIMONIDINE 0.2% OPH SOLN 5 ML BOTTLE BOTH EYES SCH ×3 (08:26→21:16)
[2017-07-14] MEDS: MULTIVITAMIN (CENTRUM) TABLET PO SCH (08:26)
[2017-07-14 10:19] LABS: ABG Base Excess 2.2 MMOL/L (-2.5-2.5); ABG HCO3 26.4 MMOL/L (20-26); ABG Oxygen Saturation 96.8 % (95-100); ABG PCO2 45.1 MM HG (35-48); ABG PH 7.395 (7.35-7.45); ABG PO2 86.7 MM HG (80-95); ABG TCO2 24.3 MMOL/L (23-27)
[2017-07-14] MEDS ORDERED: LOSARTAN 50 MG TABLET PO SCH (11:30)
[2017-07-14] MEDS: ENOXAPARIN 40 MG/0.4 ML SYRINGE SUBCUT SCH (21:16)
[2017-07-14] MEDS: NEOMYCIN/POLYMYXIN/DEXAMETH OPH OINT 3.5 GM TUBE BOTH EYES SCH (21:16)
[2017-07-14] MEDS: LATANOPROST 0.005% OPH SOLN 2.5 ML BOTTLE BOTH EYES SCH (21:19)
[2017-07-14] MEDS ORDERED: LABETALOL 20 MG/4 ML SYRINGE IV ONE (21:30)
[2017-07-14] MEDS ORDERED: LOSARTAN 50 MG TABLET PO ONE (21:30)
[2017-07-15] MEDS: LEVOTHYROXINE 88 MCG TABLET PO SCH (06:15)
[2017-07-15] MEDS: LOSARTAN 50 MG TABLET PO SCH (07:59)
[2017-07-15] MEDS: TAMSULOSIN 0.4 MG CAPSULE PO SCH ×2 (09:08→21:05)
[2017-07-15] MEDS: ASPIRIN 325 MG TABLET PO SCH (09:08)
[2017-07-15] MEDS: MULTIVITAMIN (OCUVITE) TABLET PO SCH (09:08)
[2017-07-15] MEDS: MULTIVITAMIN (CENTRUM) TABLET PO SCH (09:08)
[2017-07-15] MEDS: DOCUSATE SODIUM 100 MG CAPSULE PO SCH ×2 (09:09→21:05)
[2017-07-15] MEDS: PANTOPRAZOLE 40 MG TABLET PO SCH (09:09)
[2017-07-15] MEDS: CYANOCOBALAMIN 500 MCG TABLET PO SCH (09:09)
[2017-07-15] MEDS: BRIMONIDINE 0.2% OPH SOLN 5 ML BOTTLE BOTH EYES SCH ×3 (09:10→21:05)
[2017-07-15] MEDS: hydroCHLOROthiazide 12.5 MG CAPSULE PO SCH (09:16)
[2017-07-15] MEDS ORDERED: POTASSIUM CHLORIDE RIDER 10 MEQ in PREMIX 1 EACH IV PRN (09:50)
[2017-07-15] MEDS ORDERED: MAGNESIUM SULF RIDER 2 GM in PREMIX 1 EACH IV PRN (09:50)
[2017-07-15] MEDS ORDERED: diphenhydrAMINE CAP 25 MG CAPSULE PO ONE (10:00)
[2017-07-15] MEDS ORDERED: SODIUM CHLORIDE 0.9% 1,000 ML IV SCH (10:00)
[2017-07-15] MEDS ORDERED: DIAZEPAM 5 MG TABLET PO ONE (10:00)
[2017-07-15] MEDS ORDERED: HEPARIN/NACL 0.9% 2 UNITS/ML 1,000 ML IV ONE (10:03)
[2017-07-15] MEDS ORDERED: HYDROmorphone 2 MG/1 ML VIAL ONE (10:44)
[2017-07-15] MEDS ORDERED: MIDAZOLAM 2 MG/2 ML VIAL ONE (10:45)
[2017-07-15] MEDS ORDERED: VERAPAMIL 5 MG/2 ML VIAL ONE (10:50)
[2017-07-15] MEDS ORDERED: NITROGLYCERIN DRIP 50 MG/250 ML BOTTLE IV ONE (10:50)
[2017-07-15] MEDS ORDERED: ENOXAPARIN 30 MG/0.3 ML SYRINGE ONE (11:00)
[2017-07-15] MEDS: ENOXAPARIN 40 MG/0.4 ML SYRINGE SUBCUT SCH (21:05)
[2017-07-15] MEDS: NEOMYCIN/POLYMYXIN/DEXAMETH OPH OINT 3.5 GM TUBE BOTH EYES SCH (21:06)
[2017-07-15] MEDS: LATANOPROST 0.005% OPH SOLN 2.5 ML BOTTLE BOTH EYES SCH (21:14)
[2017-07-16 03:58] LABS: Basophils % 0.2 % (0.0-0.8); Eosinophils # 0.1 10*3/uL (0.0-0.87); Eosinophils % 1.9 % (0.00-10.9); Hematocrit 38.1 VOL% (42.0-52.0); Hemoglobin 12.5 GM/DL (14.0-18.0); Immature Granulocytes % 0.4 %; Immature Granulocytes Absolute 0.02 #; Lymphocytes # 1.4 10*3/uL (1.4-4.0); Lymphocytes % 30.4 % (21.2-54.2); Mean Corpuscular HGB Conc 32.8 GM/DL (32-36); Mean Corpuscular Hemoglobin 30 PG (27-34); Mean Corpuscular Volume 90.9 FL (87-102); Mean Platelet Volume 13.4 FL (9.6-12.0); Monocytes # 0.5 10*3/uL (0.11-0.8); Neutrophils # 2.6 10*3/uL (1.4-7.4); Neutrophils % 56.1 % (38.7-73.9); Platelet Count 101 T/CUMM (130-400); Red Blood Count 4.19 MC/CUMM (3.8-5.5); Red Cell Distribution Width 14.7 % (9.3-17.3); White Blood Count 4.6 T/CUMM (4-12)
[2017-07-16 04:29] LABS: Calcium 8.3 MG/DL (8.5-10.1); Osmolality,Calculated 283.3 MOS/KG (273-304); Potassium 4.1 MMOL/L (3.5-5.1)
[2017-07-16] MEDS: LEVOTHYROXINE 88 MCG TABLET PO SCH (06:22)
[2017-07-16] MEDS: ASPIRIN 325 MG TABLET PO SCH (09:23)
[2017-07-16] MEDS: MULTIVITAMIN (CENTRUM) TABLET PO SCH (09:24)
[2017-07-16] MEDS: LOSARTAN 50 MG TABLET PO SCH (09:24)
[2017-07-16] MEDS: MULTIVITAMIN (OCUVITE) TABLET PO SCH (09:24)
[2017-07-16] MEDS: CYANOCOBALAMIN 500 MCG TABLET PO SCH (09:24)
[2017-07-16] MEDS: BRIMONIDINE 0.2% OPH SOLN 5 ML BOTTLE BOTH EYES SCH (09:24)
[2017-07-16] MEDS: hydroCHLOROthiazide 12.5 MG CAPSULE PO SCH (09:24)
[2017-07-16] MEDS: DOCUSATE SODIUM 100 MG CAPSULE PO SCH (09:25)
[2017-07-16] MEDS: TAMSULOSIN 0.4 MG CAPSULE PO SCH (09:25)
[2017-07-16] MEDS: PANTOPRAZOLE 40 MG TABLET PO SCH (09:25)
[2017-07-16 13:52] VITALS: BP 140/86
== END 2017-07-16 12:30 | disposition home or self-care (01) | DRG 287 ==
LOC: UNDODISIN → N.ED 09:20 → N.EDINP 15:29 → N.2E 16:17
PROVIDERS: ADMIT Family Medicine; ATTEND Family Medicine

== ENCOUNTER 2017-09-11 10:37 | Observation (INO) ==
[2017-09-11 12:34] LABS: Basophils % 0.2 % (0.0-0.8); Eosinophils % 0.5 % (0.00-10.9); Hematocrit 40.4 VOL% (42.0-52.0); Hemoglobin 13.7 GM/DL (14.0-18.0); Immature Granulocytes % 0.4 %; Immature Granulocytes Absolute 0.02 #; Lymphocytes # 1.3 10*3/uL (1.4-4.0); Lymphocytes % 22.9 % (21.2-54.2); Mean Corpuscular HGB Conc 33.9 GM/DL (32-36); Mean Corpuscular Hemoglobin 30 PG (27-34); Mean Corpuscular Volume 88.4 FL (87-102); Mean Platelet Volume 13.7 FL (9.6-12.0); Monocytes # 0.4 10*3/uL (0.11-0.8); Monocytes % 7.4 % (1.7-12.7); Neutrophils # 3.9 10*3/uL (1.4-7.4); Neutrophils % 68.6 % (38.7-73.9); Platelet Count 126 T/CUMM (130-400); Red Blood Count 4.57 MC/CUMM (3.8-5.5); Red Cell Distribution Width 15.3 % (9.3-17.3); White Blood Count 5.7 T/CUMM (4-12)
[2017-09-11 12:42] LABS: PT Patient Result 10.7 SECS
[2017-09-11 12:55] LABS: Alanine Aminotransferase 29 U/L (16-61); Albumin 4.1 G/DL (3.4-5.0); Alkaline Phosphatase 67 U/L (45-117); Aspartate Amino Transferase 20 U/L (0-37); Blood Urea Nitrogen 17 MG/DL (7-18); Calcium 9.2 MG/DL (8.5-10.1); Glucose 111 MG/DL (74-106); Potassium 3.5 MMOL/L (3.5-5.1); Sodium 143 MMOL/L (136-145); Total Protein 7.5 G/DL (6.4-8.3)
[2017-09-11 13:31] LABS: Ammonia < 10 UMOL/L (11-32)
[2017-09-11 13:57] LABS: Apearance,Urine CLOUDY (Clear); Bilirubin,Urine Negative (Negative); Blood, Urine Negative (Negative); Glucose,Urine (UA) Negative (Negative); Hyaline Casts,Urine 41 /LPF (0-3); Ketones,Urine Negative (Negative); Mucus,Urine Moderate /LPF (Occasional); Nitrite,Urine Negative (Negative); Protein,Urine 30 MG/DL; RBC,Urine 1 /HPF (0-4); Squamous Epithelial Cell,Urine Occasional /HPF (0-10); Urine Color Amber (Yellow); Urine Specific Gravity 1.021 (1.001-1.035); WBC,Urine 7 /HPF (0-6)
[2017-09-11] MEDS ORDERED: ONDANSETRON 4 MG/2 ML VIAL IV PRN (15:28)
[2017-09-11] MEDS ORDERED: ACETAMINOPHEN 325 MG TABLET PO PRN ×2 (15:28→17:47)
[2017-09-11] MEDS ORDERED: ALBUTEROL 2.5 MG/3 ML NEB RESP TX PRN (17:47)
[2017-09-11] MEDS ORDERED: NITROGLYCERIN SL 0.4 MG TABLET SL PRN (17:47)
[2017-09-11] MEDS: SODIUM CHLORIDE 0.45% 1,000 ML IV SCH (18:25)
[2017-09-11 19:11] LABS: Calcium 9.1 MG/DL (8.5-10.1); Osmolality,Calculated 286.8 MOS/KG (273-304); Potassium 3.3 MMOL/L (3.5-5.1)
[2017-09-11 19:15] LABS: Troponin I Only 0.033 NG/ML (0.00-0.045)
[2017-09-11] MEDS: OXYBUTYNIN XL 10 MG TABLET PO SCH (21:17)
[2017-09-11] MEDS: DOCUSATE SODIUM 100 MG CAPSULE PO SCH (21:17)
[2017-09-11] MEDS: LATANOPROST 0.005% OPH SOLN 2.5 ML BOTTLE BOTH EYES SCH (21:19)
[2017-09-11] MEDS: BRIMONIDINE 0.2% OPH SOLN 5 ML BOTTLE BOTH EYES SCH (21:19)
[2017-09-11] MEDS: ENOXAPARIN 30 MG/0.3 ML SYRINGE SUBCUT SCH (21:21)
[2017-09-11] MEDS ORDERED: HALOPERIDOL 5 MG/ML AMP IM ONE (22:00)
[2017-09-11 23:30] LABS: Troponin I Only 0.027 NG/ML (0.00-0.045)
[2017-09-12] MEDS: LEVOTHYROXINE 88 MCG TABLET PO SCH (06:41)
[2017-09-12] MEDS: SODIUM CHLORIDE 0.45% 1,000 ML IV SCH ×2 (08:25→22:56)
[2017-09-12] MEDS: FLUDROCORTISONE 0.1 MG TABLET PO SCH (08:26)
[2017-09-12] MEDS: LOSARTAN 50 MG TABLET PO SCH (08:26)
[2017-09-12] MEDS: MULTIVITAMIN (CENTRUM) TABLET PO SCH (08:26)
[2017-09-12] MEDS: CYANOCOBALAMIN 500 MCG TABLET PO SCH (08:27)
[2017-09-12] MEDS: MULTIVITAMIN (OCUVITE) TABLET PO SCH (08:27)
[2017-09-12] MEDS: PANTOPRAZOLE 40 MG TABLET PO SCH (08:27)
[2017-09-12] MEDS: ASPIRIN EC 81 MG TABLET PO SCH (08:27)
[2017-09-12] MEDS: CHOLECALCIFEROL 1,000 UNIT TABLET PO SCH (08:27)
[2017-09-12] MEDS: DOCUSATE SODIUM 100 MG CAPSULE PO SCH ×2 (08:27→20:29)
[2017-09-12] MEDS: TAMSULOSIN 0.4 MG CAPSULE PO SCH (08:27)
[2017-09-12] MEDS: BRIMONIDINE 0.2% OPH SOLN 5 ML BOTTLE BOTH EYES SCH ×3 (08:32→20:29)
[2017-09-12 10:20] LABS: Troponin I Only 0.021 NG/ML (0.00-0.045)
[2017-09-12] MEDS: ENOXAPARIN 30 MG/0.3 ML SYRINGE SUBCUT SCH (20:29)
[2017-09-12] MEDS: OXYBUTYNIN XL 10 MG TABLET PO SCH (20:29)
[2017-09-12] MEDS: LATANOPROST 0.005% OPH SOLN 2.5 ML BOTTLE BOTH EYES SCH (20:29)
[2017-09-12] MEDS: rOPINIRole 0.25 MG TABLET PO SCH (20:29)
[2017-09-13] MEDS: LEVOTHYROXINE 88 MCG TABLET PO SCH (06:28)
[2017-09-13] MEDS: CYANOCOBALAMIN 500 MCG TABLET PO SCH (09:02)
[2017-09-13] MEDS: MULTIVITAMIN (CENTRUM) TABLET PO SCH (09:02)
[2017-09-13] MEDS: rOPINIRole 0.25 MG TABLET PO SCH (09:02)
[2017-09-13] MEDS: BRIMONIDINE 0.2% OPH SOLN 5 ML BOTTLE BOTH EYES SCH (09:02)
[2017-09-13] MEDS: PANTOPRAZOLE 40 MG TABLET PO SCH (09:03)
[2017-09-13] MEDS: ASPIRIN EC 81 MG TABLET PO SCH (09:03)
[2017-09-13] MEDS: CHOLECALCIFEROL 1,000 UNIT TABLET PO SCH (09:03)
[2017-09-13] MEDS: DOCUSATE SODIUM 100 MG CAPSULE PO SCH (09:03)
[2017-09-13] MEDS: MULTIVITAMIN (OCUVITE) TABLET PO SCH (09:03)
[2017-09-13] MEDS: FLUDROCORTISONE 0.1 MG TABLET PO SCH (09:03)
[2017-09-13] MEDS: TAMSULOSIN 0.4 MG CAPSULE PO SCH (09:03)
[2017-09-13] MEDS: LOSARTAN 50 MG TABLET PO SCH (09:03)
[2017-09-13 11:29] VITALS: BP 158/86
[2017-09-13] MEDS: SODIUM CHLORIDE 0.45% 1,000 ML IV SCH (11:31)
== END 2017-09-13 13:54 ==
LOC: N.ED 10:37 → N.EDINP 10:37 → N.4E 17:20
PROVIDERS: ADMIT Family Medicine; ATTEND Family Medicine

== ENCOUNTER 2022-04-30 15:02 | Inpatient (IN) ==
[2022-04-30] MEDS ORDERED: SODIUM CHLORIDE 0.9% 1,000 ML IV STA (16:13)
[2022-04-30 16:22] LABS: Basophils % 0.1 % (0.0-0.8); Hematocrit 28.1 VOL% (42.0-52.0); Hemoglobin 9.3 GM/DL (14.0-18.0); Immature Granulocytes % 0.9 %; Immature Granulocytes Absolute 0.09 #; Lymphocytes # 0.2 10*3/uL (1.4-4.0); Lymphocytes % 1.8 % (21.2-54.2); Mean Corpuscular HGB Conc 33.1 GM/DL (32-36); Mean Platelet Volume 12.9 FL (9.6-12.0); Monocytes # 0.1 10*3/uL (0.11-0.8); Monocytes % 0.6 % (1.7-12.7); Neutrophils % 96.6 % (38.7-73.9); Platelet Count 125 T/CUMM (130-400); Red Blood Count 3.23 MC/CUMM (3.8-5.5); Red Cell Distribution Width 15.1 % (9.3-17.3); White Blood Count 10.05 T/CUMM (4-12)
[2022-04-30 16:50] LABS: Alanine Aminotransferase 33 U/L (16-61); Albumin 2.4 G/DL (3.4-5.0); Alkaline Phosphatase 203 U/L (45-117); Aspartate Amino Transferase 30 U/L (0-37); Blood Urea Nitrogen 16 MG/DL (7-18); Calcium 8.7 MG/DL (8.5-10.1); Carbon Dioxide 25 MMOL/L (21-32); Chloride 110 MMOL/L (98-107); Glucose 104 MG/DL (74-106); Osmolality,Calculated 288.7 MOS/KG (273-304); Potassium 2.7 MMOL/L (3.5-5.1); Sodium 145 MMOL/L (136-145); Total Protein 6.6 G/DL (6.4-8.2)
[2022-04-30 16:59] LABS: Band Neutrophils 19 % (0-10); Lymphocytes 2 % (20-55); Metamyelocytes 1 %; Total Cells Counted 100
[2022-04-30 17:00] LABS: Hypochromia Slight; Ovalocytes Few; Platelet Estimate Adequate; Polychromasia Slight
[2022-04-30] MEDS ORDERED: POTASSIUM CHLORIDE 20 MEQ TABLET PO STA (17:03)
[2022-04-30 17:31] LABS: Mucus,Urine Moderate /LPF (Occasional); RBC,Urine 6 /HPF (0-4); Squamous Epithelial Cell,Urine Occasional /HPF (0-10)
[2022-04-30 17:32] LABS: Urine Appearance Clear (Clear); Urine Color Amber (Yellow)
[2022-04-30 17:33] LABS: Bilirubin,Urine Large mg/dL (Negative); Blood, Urine Trace mg/dL (Negative); Glucose,Urine (UA) 100 mg/dL (Negative); Ketones,Urine 15 mg/dL (Negative); Nitrite,Urine Negative (Negative); Protein,Urine 100 mg/dL (Negative); Urine Specific Gravity 1.025 (1.001-1.035); Urine Urobilinogen >= 8.0 eU/dL (<2.0)
[2022-04-30] MEDS ORDERED: SODIUM CHLORIDE 0.9% 2,000 ML IV STA (17:44)
[2022-04-30] MEDS ORDERED: cefTRIAXone 1,000 MG in SODIUM CHLORIDE 0.9% 100 ML IV STA (17:44)
[2022-04-30] MEDS ORDERED: HYDROmorphone 1 MG/1 ML SYRINGE IV PRN ×2 (17:56→20:13)
[2022-04-30] MEDS ORDERED: ONDANSETRON 4 MG/2 ML VIAL IV PRN ×2 (17:56→20:13)
[2022-04-30] MEDS ORDERED: ONDANSETRON 4 MG/2 ML VIAL ONE (19:37)
[2022-04-30] MEDS ORDERED: propofoL 200 MG/20 ML VIAL IV ONE (19:37)
[2022-04-30] MEDS ORDERED: fentaNYL 100 MCG/2 ML VIAL ONE (19:37)
[2022-04-30] MEDS ORDERED: LIDOCAINE 2% 5 ML VIAL ONE (19:37)
[2022-04-30] MEDS ORDERED: PHENYLEPHRINE 1 MG/10 ML SYRINGE IV ONE (20:04)
[2022-04-30] MEDS ORDERED: diphenhydrAMINE 50 MG/1 ML VIAL IV PRN (20:13)
[2022-04-30] MEDS ORDERED: PROMETHAZINE INJ 25 MG in SODIUM CHLORIDE 0.9% 50 ML IV PRN (20:13)
[2022-04-30] MEDS ORDERED: MEPERIDINE 25 MG/1 ML VIAL IV PRN (20:13)
[2022-04-30] MEDS ORDERED: ACETAMINOPHEN INJ 1,000 MG/100 ML VIAL IV ONE ×2 (20:35→20:37)
[2022-04-30] MEDS ORDERED: MORPHINE 2 MG/1 ML SYRINGE IV PRN (23:32)
[2022-05-01 07:16] LABS: Basophils % 0.1 % (0.0-0.8); Hematocrit 25.8 VOL% (42.0-52.0); Hemoglobin 8.4 GM/DL (14.0-18.0); Immature Granulocytes % 6.9 %; Immature Granulocytes Absolute 1.52 #; Lymphocytes # 0.6 10*3/uL (1.4-4.0); Lymphocytes % 2.6 % (21.2-54.2); Mean Corpuscular HGB Conc 32.6 GM/DL (32-36); Mean Corpuscular Volume 88.4 FL (87-102); Mean Platelet Volume 13.6 FL (9.6-12.0); Monocytes # 0.7 10*3/uL (0.11-0.8); Monocytes % 3.3 % (1.7-12.7); Neutrophils % 87.1 % (38.7-73.9); Platelet Count 112 T/CUMM (130-400); Red Blood Count 2.92 MC/CUMM (3.8-5.5); Red Cell Distribution Width 15.5 % (9.3-17.3); White Blood Count 21.92 T/CUMM (4-12)
[2022-05-01 07:19] LABS: Osmolality,Calculated 294.6 MOS/KG (273-304); Potassium 3.8 MMOL/L (3.5-5.1)
[2022-05-01 07:38] LABS: Anisocytosis 1+; Band Neutrophils 29 % (0-10); Lymphocytes 4 % (20-55); Macrocytosis 1+; Metamyelocytes 3 %; Platelet Estimate Adequate; Total Cells Counted 100
[2022-05-01] MEDS: PANTOPRAZOLE 40 MG TABLET PO SCH (08:41)
[2022-05-01] MEDS: SODIUM CHLORIDE 0.9% 1,000 ML IV SCH ×3 (08:43→23:12)
[2022-05-01] MEDS ORDERED: INFLUENZA VIRUS VACCINE 0.5 ML SYRINGE IM ONE (09:00)
[2022-05-01] MEDS: MEROPENEM 500 MG in SODIUM CHLORIDE 0.9% 100 ML IV SCH ×2 (09:08→17:10)
[2022-05-01] MEDS: DORZOLAMIDE/TIMOLOL OPH SOLN 10 ML BOTTLE BOTH EYES SCH ×2 (12:08→22:35)
[2022-05-01] MEDS: LEVOTHYROXINE 88 MCG TABLET PO SCH (12:08)
[2022-05-01] MEDS ORDERED: cefTRIAXone 1,000 MG in SODIUM CHLORIDE 0.9% 100 ML IV SCH (18:00)
[2022-05-02] MEDS: MEROPENEM 500 MG in SODIUM CHLORIDE 0.9% 100 ML IV SCH ×3 (02:47→18:02)
[2022-05-02] MEDS: LEVOTHYROXINE 88 MCG TABLET PO SCH (05:40)
[2022-05-02] MEDS ORDERED: LEVOTHYROXINE 88 MCG TABLET PO SCH (06:30)
[2022-05-02 08:01] LABS: Basophils % 0.1 % (0.0-0.8); Eosinophils # 0.1 10*3/uL (0.0-0.87); Eosinophils % 0.6 % (0.00-10.9); Hematocrit 25.4 VOL% (42.0-52.0); Hemoglobin 8.5 GM/DL (14.0-18.0); Immature Granulocytes % 1.6 %; Immature Granulocytes Absolute 0.27 #; Lymphocytes # 1.1 10*3/uL (1.4-4.0); Lymphocytes % 6.6 % (21.2-54.2); Mean Corpuscular HGB Conc 33.5 GM/DL (32-36); Mean Corpuscular Volume 86.4 FL (87-102); Mean Platelet Volume 12.1 FL (9.6-12.0); Monocytes # 0.5 10*3/uL (0.11-0.8); Monocytes % 2.9 % (1.7-12.7); Neutrophils % 88.2 % (38.7-73.9); Platelet Count 113 T/CUMM (130-400); Red Blood Count 2.94 MC/CUMM (3.8-5.5); Red Cell Distribution Width 15.8 % (9.3-17.3); White Blood Count 16.47 T/CUMM (4-12)
[2022-05-02 08:24] LABS: Anisocytosis 1+; Band Neutrophils 24 % (0-10); Lymphocytes 6 % (20-55); Nucleated Red Blood Cells 1 /100 WBC (0-5); Platelet Estimate Adequate; Total Cells Counted 100
[2022-05-02 08:25] LABS: Albumin 1.9 G/DL (3.4-5.0); Bilirubin,Total 0.7 MG/DL (0.20-1.00); Calcium 7.9 MG/DL (8.5-10.1); Macrocytosis Slight; Osmolality,Calculated 291.7 MOS/KG (273-304); Ovalocytes Few; Potassium 3.2 MMOL/L (3.5-5.1); Total Protein 5.9 G/DL (6.4-8.2)
[2022-05-02] MEDS: PANTOPRAZOLE 40 MG TABLET PO SCH (09:39)
[2022-05-02] MEDS: SODIUM CHLORIDE 0.9% 1,000 ML IV SCH ×2 (09:40→20:32)
[2022-05-02] MEDS: DORZOLAMIDE/TIMOLOL OPH SOLN 10 ML BOTTLE BOTH EYES SCH ×2 (11:45→20:33)
[2022-05-03] MEDS: MEROPENEM 500 MG in SODIUM CHLORIDE 0.9% 100 ML IV SCH ×3 (01:40→18:08)
[2022-05-03] MEDS: LEVOTHYROXINE 88 MCG TABLET PO SCH (05:41)
[2022-05-03] MEDS: SODIUM CHLORIDE 0.9% 1,000 ML IV SCH ×4 (05:42→22:36)
[2022-05-03] MEDS ORDERED: ALUMINUM/MAGNES/SIMETH MAX STR 30 ML UDCUP PO PRN (06:42)
[2022-05-03] MEDS ORDERED: ALBUTEROL/IPRATROPIUM 3 ML NEB RESP TX PRN (08:10)
[2022-05-03] MEDS: FERROUS SULFATE 325 MG TABLET PO SCH ×2 (09:15→21:21)
[2022-05-03] MEDS: CYANOCOBALAMIN 500 MCG TABLET PO SCH (09:15)
[2022-05-03] MEDS: MULTIVITAMIN (OCUVITE) TABLET PO SCH (09:15)
[2022-05-03] MEDS: ASPIRIN EC 81 MG TABLET PO SCH (09:15)
[2022-05-03] MEDS: CHOLECALCIFEROL 1,000 UNIT TABLET PO SCH (09:15)
[2022-05-03] MEDS: PANTOPRAZOLE 40 MG TABLET PO SCH (09:15)
[2022-05-03] MEDS: DORZOLAMIDE/TIMOLOL OPH SOLN 10 ML BOTTLE BOTH EYES SCH ×2 (09:22→21:22)
[2022-05-03] MEDS: ALBUTEROL 2.5 MG/3 ML NEB RESP TX SCH ×3 (11:20→19:25)
[2022-05-03] MEDS: ALFUZOSIN 10 MG TABLET PO SCH (21:21)
[2022-05-03] MEDS: FINASTERIDE 5 MG TABLET PO SCH (21:21)
[2022-05-03] MEDS: LATANOPROST 0.005% OPH SOLN 2.5 ML BOTTLE BOTH EYES SCH (21:29)
[2022-05-04] MEDS: ALBUTEROL 2.5 MG/3 ML NEB RESP TX SCH ×6 (00:26→21:20)
[2022-05-04] MEDS: MEROPENEM 500 MG in SODIUM CHLORIDE 0.9% 100 ML IV SCH ×3 (01:41→18:04)
[2022-05-04] MEDS: SODIUM CHLORIDE 0.9% 1,000 ML IV SCH ×2 (01:41→10:30)
[2022-05-04 04:50] LABS: Basophils % 0.1 % (0.0-0.8); Eosinophils # 0.1 10*3/uL (0.0-0.87); Eosinophils % 0.9 % (0.00-10.9); Hematocrit 26.8 VOL% (42.0-52.0); Hemoglobin 8.9 GM/DL (14.0-18.0); Immature Granulocytes % 0.8 %; Immature Granulocytes Absolute 0.08 #; Lymphocytes # 1.3 10*3/uL (1.4-4.0); Lymphocytes % 12.5 % (21.2-54.2); Mean Corpuscular HGB Conc 33.2 GM/DL (32-36); Mean Corpuscular Volume 85.9 FL (87-102); Mean Platelet Volume 13.3 FL (9.6-12.0); Monocytes # 0.5 10*3/uL (0.11-0.8); Monocytes % 4.7 % (1.7-12.7); Platelet Count 117 T/CUMM (130-400); Red Blood Count 3.12 MC/CUMM (3.8-5.5); White Blood Count 10.02 T/CUMM (4-12)
[2022-05-04 05:16] LABS: Osmolality,Calculated 289.7 MOS/KG (273-304); Potassium 3.3 MMOL/L (3.5-5.1)
[2022-05-04 05:43] LABS: Eosinophils 2 % (0-10); Hypochromia 1+; Lymphocytes 11 % (20-55); Ovalocytes Few; Target Cells Slight; Total Cells Counted 100
[2022-05-04 05:44] LABS: Anisocytosis 1+; Microcytosis 1+; Platelet Estimate Adequate
[2022-05-04] MEDS: LEVOTHYROXINE 88 MCG TABLET PO SCH (05:57)
[2022-05-04] MEDS: MULTIVITAMIN (OCUVITE) TABLET PO SCH (10:13)
[2022-05-04] MEDS: CYANOCOBALAMIN 500 MCG TABLET PO SCH (10:13)
[2022-05-04] MEDS: CHOLECALCIFEROL 1,000 UNIT TABLET PO SCH (10:13)
[2022-05-04] MEDS: FERROUS SULFATE 325 MG TABLET PO SCH ×2 (10:14→20:47)
[2022-05-04] MEDS: ASPIRIN EC 81 MG TABLET PO SCH (10:14)
[2022-05-04] MEDS: PANTOPRAZOLE 40 MG TABLET PO SCH (10:14)
[2022-05-04] MEDS: DORZOLAMIDE/TIMOLOL OPH SOLN 10 ML BOTTLE BOTH EYES SCH ×2 (10:15→20:47)
[2022-05-04] MEDS: ALFUZOSIN 10 MG TABLET PO SCH (20:47)
[2022-05-04] MEDS: FINASTERIDE 5 MG TABLET PO SCH (20:47)
[2022-05-04] MEDS: LATANOPROST 0.005% OPH SOLN 2.5 ML BOTTLE BOTH EYES SCH (20:47)
[2022-05-05] MEDS: MEROPENEM 500 MG in SODIUM CHLORIDE 0.9% 100 ML IV SCH (01:16)
[2022-05-05] MEDS: ALBUTEROL 2.5 MG/3 ML NEB RESP TX SCH ×7 (02:24→22:10)
[2022-05-05] MEDS: LEVOTHYROXINE 88 MCG TABLET PO SCH (06:16)
[2022-05-05] MEDS: CHOLECALCIFEROL 1,000 UNIT TABLET PO SCH (08:12)
[2022-05-05] MEDS: MULTIVITAMIN (OCUVITE) TABLET PO SCH (08:12)
[2022-05-05] MEDS: LEVOFLOXACIN 500 MG TABLET PO SCH (08:12)
[2022-05-05] MEDS: PANTOPRAZOLE 40 MG TABLET PO SCH (08:12)
[2022-05-05] MEDS: FERROUS SULFATE 325 MG TABLET PO SCH ×2 (08:12→21:13)
[2022-05-05] MEDS: CYANOCOBALAMIN 500 MCG TABLET PO SCH (08:13)
[2022-05-05] MEDS: ASPIRIN EC 81 MG TABLET PO SCH (08:13)
[2022-05-05] MEDS: DORZOLAMIDE/TIMOLOL OPH SOLN 10 ML BOTTLE BOTH EYES SCH ×2 (08:17→21:13)
[2022-05-05] MEDS: ALFUZOSIN 10 MG TABLET PO SCH (21:13)
[2022-05-05] MEDS: LATANOPROST 0.005% OPH SOLN 2.5 ML BOTTLE BOTH EYES SCH (21:13)
[2022-05-05] MEDS: FINASTERIDE 5 MG TABLET PO SCH (21:13)
[2022-05-06] MEDS: LEVOTHYROXINE 88 MCG TABLET PO SCH (05:33)
[2022-05-06] MEDS: ALBUTEROL 2.5 MG/3 ML NEB RESP TX SCH ×5 (07:15→20:09)
[2022-05-06] MEDS: CHOLECALCIFEROL 1,000 UNIT TABLET PO SCH (08:52)
[2022-05-06] MEDS: LEVOFLOXACIN 500 MG TABLET PO SCH (08:52)
[2022-05-06] MEDS: ASPIRIN EC 81 MG TABLET PO SCH (08:52)
[2022-05-06] MEDS: FERROUS SULFATE 325 MG TABLET PO SCH ×2 (08:52→20:41)
[2022-05-06] MEDS: MULTIVITAMIN (OCUVITE) TABLET PO SCH (08:52)
[2022-05-06] MEDS: DORZOLAMIDE/TIMOLOL OPH SOLN 10 ML BOTTLE BOTH EYES SCH ×2 (08:53→20:40)
[2022-05-06] MEDS: PANTOPRAZOLE 40 MG TABLET PO SCH (08:53)
[2022-05-06] MEDS: CYANOCOBALAMIN 500 MCG TABLET PO SCH (08:53)
[2022-05-06] MEDS: ACETAMINOPHEN 500 MG TABLET PO PRN (17:15)
[2022-05-06] MEDS: FINASTERIDE 5 MG TABLET PO SCH (20:41)
[2022-05-06] MEDS: LATANOPROST 0.005% OPH SOLN 2.5 ML BOTTLE BOTH EYES SCH (20:41)
[2022-05-06] MEDS: ALFUZOSIN 10 MG TABLET PO SCH (20:41)
[2022-05-07] MEDS: ALBUTEROL 2.5 MG/3 ML NEB RESP TX SCH ×7 (00:20→22:54)
[2022-05-07 04:48] LABS: Basophils % 0.1 % (0.0-0.8); Eosinophils # 0.1 10*3/uL (0.0-0.87); Hematocrit 26.1 VOL% (42.0-52.0); Hemoglobin 8.4 GM/DL (14.0-18.0); Immature Granulocytes Absolute 0.07 #; Lymphocytes # 1.4 10*3/uL (1.4-4.0); Lymphocytes % 20.3 % (21.2-54.2); Mean Corpuscular HGB Conc 32.2 GM/DL (32-36); Mean Corpuscular Volume 85.6 FL (87-102); Mean Platelet Volume 12.8 FL (9.6-12.0); Monocytes # 0.5 10*3/uL (0.11-0.8); Monocytes % 6.8 % (1.7-12.7); Neutrophils % 70.8 % (38.7-73.9); Platelet Count 177 T/CUMM (130-400); Red Blood Count 3.05 MC/CUMM (3.8-5.5); Red Cell Distribution Width 15.6 % (9.3-17.3)
[2022-05-07 05:11] LABS: Albumin 1.7 G/DL (3.4-5.0); Bilirubin,Total 0.4 MG/DL (0.20-1.00); Calcium 8.2 MG/DL (8.5-10.1); Osmolality,Calculated 289.6 MOS/KG (273-304); Total Protein 5.5 G/DL (6.4-8.2)
[2022-05-07] MEDS: LEVOTHYROXINE 88 MCG TABLET PO SCH (05:55)
[2022-05-07] MEDS ORDERED: cefTRIAXone 1,000 MG in SODIUM CHLORIDE 0.9% 100 ML IV ONE (06:30)
[2022-05-07 06:54] LABS: Osmolality,Calculated 289.6 MOS/KG (273-304)
[2022-05-07] MEDS ORDERED: propofoL 200 MG/20 ML VIAL IV ONE (10:23)
[2022-05-07] MEDS ORDERED: LIDOCAINE 2% 5 ML VIAL ONE (10:23)
[2022-05-07] MEDS ORDERED: fentaNYL 100 MCG/2 ML VIAL ONE (10:23)
[2022-05-07] MEDS ORDERED: SEVOFLURANE 1 UNIT/15 MINUTE INH ONE (10:26)
[2022-05-07] MEDS ORDERED: ONDANSETRON 4 MG/2 ML VIAL ONE (10:26)
[2022-05-07] MEDS ORDERED: FAMOTIDINE 20 MG/2 ML VIAL IV ONE (10:30)
[2022-05-07] MEDS: FAMOTIDINE 20 MG/2 ML VIAL IV ONE ×2 (10:40→11:13)
[2022-05-07] MEDS: DORZOLAMIDE/TIMOLOL OPH SOLN 10 ML BOTTLE BOTH EYES SCH ×2 (10:43→21:21)
[2022-05-07] MEDS ORDERED: NEOMYCIN/POLYMYXIN IRRIG SOLN 1 ML AMP BLADDERIRR ONE (11:27)
[2022-05-07] MEDS ORDERED: LACTATED RINGERS 1,000 ML IV SCH (11:30)
[2022-05-07] MEDS ORDERED: PHENYLEPHRINE 1 MG/10 ML SYRINGE IV ONE (12:12)
[2022-05-07] MEDS: ASPIRIN EC 81 MG TABLET PO SCH (14:58)
[2022-05-07] MEDS: CHOLECALCIFEROL 1,000 UNIT TABLET PO SCH (14:59)
[2022-05-07] MEDS: CYANOCOBALAMIN 500 MCG TABLET PO SCH (14:59)
[2022-05-07] MEDS: PANTOPRAZOLE 40 MG TABLET PO SCH (14:59)
[2022-05-07] MEDS: MULTIVITAMIN (OCUVITE) TABLET PO SCH (14:59)
[2022-05-07] MEDS: FERROUS SULFATE 325 MG TABLET PO SCH ×2 (14:59→21:18)
[2022-05-07] MEDS: LEVOFLOXACIN 500 MG TABLET PO SCH (14:59)
[2022-05-07] MEDS: ALFUZOSIN 10 MG TABLET PO SCH (21:18)
[2022-05-07] MEDS: LATANOPROST 0.005% OPH SOLN 2.5 ML BOTTLE BOTH EYES SCH (21:18)
[2022-05-07] MEDS: FINASTERIDE 5 MG TABLET PO SCH (21:18)
[2022-05-08] MEDS: ALBUTEROL 2.5 MG/3 ML NEB RESP TX SCH ×5 (03:35→19:24)
[2022-05-08] MEDS: LEVOTHYROXINE 88 MCG TABLET PO SCH (05:47)
[2022-05-08] MEDS ORDERED: POTASSIUM CHLORIDE 20 MEQ TABLET PO ONE (09:00)
[2022-05-08] MEDS: ASPIRIN EC 81 MG TABLET PO SCH (10:18)
[2022-05-08] MEDS: CYANOCOBALAMIN 500 MCG TABLET PO SCH (10:18)
[2022-05-08] MEDS: CHOLECALCIFEROL 1,000 UNIT TABLET PO SCH (10:19)
[2022-05-08] MEDS: LEVOFLOXACIN 500 MG TABLET PO SCH (10:19)
[2022-05-08] MEDS: FERROUS SULFATE 325 MG TABLET PO SCH ×2 (10:19→23:30)
[2022-05-08] MEDS: PANTOPRAZOLE 40 MG TABLET PO SCH (10:19)
[2022-05-08] MEDS: MULTIVITAMIN (OCUVITE) TABLET PO SCH (10:19)
[2022-05-08] MEDS: DORZOLAMIDE/TIMOLOL OPH SOLN 10 ML BOTTLE BOTH EYES SCH ×2 (10:20→23:29)
[2022-05-08] MEDS: ACETAMINOPHEN 500 MG TABLET PO PRN (18:17)
[2022-05-08] MEDS: ALFUZOSIN 10 MG TABLET PO SCH (23:30)
[2022-05-08] MEDS: LATANOPROST 0.005% OPH SOLN 2.5 ML BOTTLE BOTH EYES SCH (23:30)
[2022-05-08] MEDS: FINASTERIDE 5 MG TABLET PO SCH (23:30)
[2022-05-09] MEDS: ALBUTEROL 2.5 MG/3 ML NEB RESP TX SCH ×7 (00:50→22:10)
[2022-05-09 05:41] LABS: Basophils % 0.1 % (0.0-0.8); Eosinophils # 0.1 10*3/uL (0.0-0.87); Hematocrit 24.9 VOL% (42.0-52.0); Hemoglobin 8.1 GM/DL (14.0-18.0); Immature Granulocytes % 0.8 %; Immature Granulocytes Absolute 0.06 #; Lymphocytes # 1.6 10*3/uL (1.4-4.0); Lymphocytes % 20.7 % (21.2-54.2); Mean Corpuscular HGB Conc 32.5 GM/DL (32-36); Mean Corpuscular Volume 87.1 FL (87-102); Mean Platelet Volume 13.2 FL (9.6-12.0); Monocytes # 0.4 10*3/uL (0.11-0.8); Monocytes % 5.5 % (1.7-12.7); Neutrophils % 71.9 % (38.7-73.9); Platelet Count 202 T/CUMM (130-400); Red Blood Count 2.86 MC/CUMM (3.8-5.5); Red Cell Distribution Width 15.9 % (9.3-17.3); White Blood Count 7.94 T/CUMM (4-12)
[2022-05-09 05:53] LABS: Calcium 8.1 MG/DL (8.5-10.1); Potassium 3.2 MMOL/L (3.5-5.1)
[2022-05-09] MEDS: LEVOTHYROXINE 88 MCG TABLET PO SCH (07:23)
[2022-05-09] MEDS ORDERED: MAGNESIUM SULF INJ 3 GM in SODIUM CHLORIDE 0.9% 100 ML IV ONE (10:00)
[2022-05-09] MEDS: ASPIRIN EC 81 MG TABLET PO SCH (11:17)
[2022-05-09] MEDS: FERROUS SULFATE 325 MG TABLET PO SCH ×2 (11:17→21:19)
[2022-05-09] MEDS: CYANOCOBALAMIN 500 MCG TABLET PO SCH (11:17)
[2022-05-09] MEDS: PANTOPRAZOLE 40 MG TABLET PO SCH (11:18)
[2022-05-09] MEDS: LEVOFLOXACIN 500 MG TABLET PO SCH (11:18)
[2022-05-09] MEDS: DORZOLAMIDE/TIMOLOL OPH SOLN 10 ML BOTTLE BOTH EYES SCH ×2 (11:18→21:19)
[2022-05-09] MEDS: MULTIVITAMIN (OCUVITE) TABLET PO SCH (11:18)
[2022-05-09] MEDS: CHOLECALCIFEROL 1,000 UNIT TABLET PO SCH (11:18)
[2022-05-09] MEDS: POTASSIUM CHLORIDE RIDER 10 MEQ/100 ML PREMIX IV PRN ×3 (13:40→21:21)
[2022-05-09] MEDS: FINASTERIDE 5 MG TABLET PO SCH (21:19)
[2022-05-09] MEDS: ALFUZOSIN 10 MG TABLET PO SCH (21:19)
[2022-05-09] MEDS: LATANOPROST 0.005% OPH SOLN 2.5 ML BOTTLE BOTH EYES SCH (21:20)
[2022-05-10] MEDS: POTASSIUM CHLORIDE RIDER 10 MEQ/100 ML PREMIX IV PRN (00:49)
[2022-05-10] MEDS: ALBUTEROL 2.5 MG/3 ML NEB RESP TX SCH ×5 (02:23→19:20)
[2022-05-10 04:31] LABS: Basophils % 0.1 % (0.0-0.8); Eosinophils # 0.1 10*3/uL (0.0-0.87); Eosinophils % 1.2 % (0.00-10.9); Hematocrit 25.3 VOL% (42.0-52.0); Immature Granulocytes % 0.6 %; Immature Granulocytes Absolute 0.05 #; Lymphocytes # 1.5 10*3/uL (1.4-4.0); Lymphocytes % 19.4 % (21.2-54.2); Mean Corpuscular HGB Conc 31.6 GM/DL (32-36); Mean Corpuscular Volume 86.6 FL (87-102); Mean Platelet Volume 12.3 FL (9.6-12.0); Monocytes # 0.4 10*3/uL (0.11-0.8); Monocytes % 4.9 % (1.7-12.7); Neutrophils % 73.8 % (38.7-73.9); Platelet Count 235 T/CUMM (130-400); Red Blood Count 2.92 MC/CUMM (3.8-5.5); Red Cell Distribution Width 16.1 % (9.3-17.3); White Blood Count 7.82 T/CUMM (4-12)
[2022-05-10 04:58] LABS: Calcium 7.7 MG/DL (8.5-10.1); Osmolality,Calculated 284.8 MOS/KG (273-304); Potassium 3.2 MMOL/L (3.5-5.1)
[2022-05-10] MEDS: LEVOTHYROXINE 88 MCG TABLET PO SCH (06:03)
[2022-05-10] MEDS: PANTOPRAZOLE 40 MG TABLET PO SCH (08:21)
[2022-05-10] MEDS: ASPIRIN EC 81 MG TABLET PO SCH (08:21)
[2022-05-10] MEDS: CHOLECALCIFEROL 1,000 UNIT TABLET PO SCH (08:21)
[2022-05-10] MEDS: CYANOCOBALAMIN 500 MCG TABLET PO SCH (08:21)
[2022-05-10] MEDS: FERROUS SULFATE 325 MG TABLET PO SCH ×2 (08:21→21:07)
[2022-05-10] MEDS: LEVOFLOXACIN 500 MG TABLET PO SCH (08:21)
[2022-05-10] MEDS: MULTIVITAMIN (OCUVITE) TABLET PO SCH (08:21)
[2022-05-10] MEDS: DORZOLAMIDE/TIMOLOL OPH SOLN 10 ML BOTTLE BOTH EYES SCH ×2 (08:22→21:07)
[2022-05-10] MEDS: ALFUZOSIN 10 MG TABLET PO SCH (21:07)
[2022-05-10] MEDS: LATANOPROST 0.005% OPH SOLN 2.5 ML BOTTLE BOTH EYES SCH (21:07)
[2022-05-10] MEDS: FINASTERIDE 5 MG TABLET PO SCH (21:07)
[2022-05-11] MEDS: ALBUTEROL 2.5 MG/3 ML NEB RESP TX SCH ×3 (00:26→10:50)
[2022-05-11] MEDS: LEVOTHYROXINE 88 MCG TABLET PO SCH (05:42)
[2022-05-11] MEDS: DORZOLAMIDE/TIMOLOL OPH SOLN 10 ML BOTTLE BOTH EYES SCH (10:12)
[2022-05-11] MEDS: PANTOPRAZOLE 40 MG TABLET PO SCH (10:13)
[2022-05-11] MEDS: MULTIVITAMIN (OCUVITE) TABLET PO SCH (10:13)
[2022-05-11] MEDS: ASPIRIN EC 81 MG TABLET PO SCH (10:13)
[2022-05-11] MEDS: FERROUS SULFATE 325 MG TABLET PO SCH (10:13)
[2022-05-11] MEDS: LEVOFLOXACIN 500 MG TABLET PO SCH (10:13)
[2022-05-11] MEDS: CYANOCOBALAMIN 500 MCG TABLET PO SCH (10:13)
[2022-05-11] MEDS: CHOLECALCIFEROL 1,000 UNIT TABLET PO SCH (10:13)
[2022-05-11 12:05] VITALS: BP 168/86
[2022-05-12 14:15] LABS: Stone Analysis Interpretation SEE COMMENTS
== END 2022-05-11 15:06 | disposition swing bed (61) | DRG 854 ==
LOC: EDUNIT# → EDBD → N.ED 15:02 → N.EDINP 15:02 → N.2W 19:45 → N.TELEN 05-01 18:15
PROVIDERS: ADMIT Family Medicine; ATTEND Family Medicine